=== PATIENT | male | born 1970 | race Caucasian/White ===

== ENCOUNTER 2020-08-08 09:23 | Outpatient (REF) | payer BC, SELFPAY ==
[2020-08-08 12:16] LABS: Alanine Aminotransferase 49 U/L (0-40); Aspartate Amino Transferase 34 U/L (5-37); Cholesterol 263 mg/dL; HDL Cholesterol 61 mg/dL; LDL Cholesterol Calculated 179 mg/dl; Triglycerides 116 mg/dL
== END 2020-08-08 09:24 | disposition home or self-care (01) ==
LOC: HO.HMGCLDS 09:23
PROVIDERS: PCP Internal Medicine; Visit Provider Internal Medicine
DX: E78.00 Pure hypercholesterolemia, unspecified (principal); R74.8 Abnormal levels of other serum enzymes
CPT/HCPCS: 36415; 80061; 82550; 84450; 84460

== ENCOUNTER 2020-09-21 15:02 | Emergency (ER) | payer BC, SELFPAY ==
--- NOTE | ~2020-09-21 | CT_ITS ---
EXAMINATION: CT ABDOMEN AND PELVIS WITHOUT CONTRAST CLINICAL INFORMATION: Left flank pain COMPARISON: Abdominal ultrasound 09/29/2016 TECHNIQUE: Multidetector volumetric imaging was performed from the superior aspect of the liver through the pubic symphysis. Sagittal and coronal reformatted images were obtained on the technologist's workstation. This CT examination was performed using dose optimization techniques as appropriate, variously including the following: *Automated exposure control *Adjustment of mA and/or kV according to patient size (this includes techniques or standardized protocols for targeted exams where dose is matched to indication/reason for exam; i.e. extremities or head) *Use of iterative reconstruction technique DLP: 730 mGy-cm FINDINGS: Visualized lung bases demonstrate mild dependent atelectasis. The liver is normal in size but demonstrates diffusely decreased attenuation. The gallbladder is normal in appearance. The pancreas, spleen and adrenal glands are unremarkable. Mild to moderate left-sided hydroureteronephrosis secondary to a 4 mm calculus within the mid left ureter. There is mild perinephric stranding of the left kidney. 2 cm left renal cyst. No right-sided renal calculi or right-sided hydronephrosis. Tiny hiatal hernia. The stomach is decompressed. Normal caliber loops of small and large bowel. Mild colonic diverticulosis without CT evidence to suggest active diverticulitis. Normal appendix. Nonaneurysmal abdominal aorta which demonstrates only minimal atherosclerotic disease. The bladder is normal in appearance. Prostate gland is unremarkable. No gross free pelvic fluid. No inguinal lymphadenopathy. No acute osseous abnormality. CT/CT abdomen pelvis wo con IMPRESSION: -Mild to moderate left-sided hydronephrosis secondary to a 4 mm calculus within the mid left ureter. -Mildly decreased liver attenuation suggesting hepatic steatosis. -Mild colonic diverticulosis without CT evidence to suggest active diverticulitis.
[2020-09-21 15:09] VITALS: BP 153/92; PULSE 95; RESP 16; TEMP 36.7; O2SAT 99; BMI 29.1
[2020-09-21 18:45] VITALS: BP 133/92; PULSE 74; RESP 17; TEMP 37.7; O2SAT 98
[2020-09-21 19:09] LABS: MANUAL DIFF FLAG NO
[2020-09-21 19:11] LABS: Basophils Absolute Auto 0.1 X10*3/uL (0.0-0.2); Basophils Percent Auto 0.5 % (0-2); Eosinophils Percent Auto 0.1 % (0-4); Hematocrit 48.5 % (42-52); Hemoglobin 16.5 g/dl (14.0-18.0); Imm Gran Abs Auto 0.03 X10*3/uL (0.00-0.03); Imm Gran Pct Auto 0.3 % (0.0-0.4); Lymphocytes Absolute Auto 1.4 X10*3/uL (1.2-4.9); Lymphocytes Percent Auto 12.5 % (20-40); Mean Corpuscular Hemoglobin 29.7 pg (27.0-33.0); Mean Corpuscular Volume 87.2 fL (80-98); Mean Platelet Volume 8.5 fL (9.4-12.4); Monocytes Absolute Auto 1.1 X10*3/uL (0.1-1.2); Monocytes Percent Auto 9.6 % (2-11); Neutrophils Absolute Auto 8.4 X10*3/uL (2.0-8.3); Platelet Count 275 X10*3/uL (160-400); Red Blood Count 5.56 X10*6/uL (4.60-5.80); Red Cell Distribution Width 12.4 % (11.0-16.0)
[2020-09-21] MEDS: 0.9 % Sodium Chloride 1,000 ML 999 ML IVCONT ×2 (19:15→20:56)
[2020-09-21] MEDS: Ketorolac Tromethamine 30 MG/ML VIAL IVPUSH (19:15)
--- NOTE | 2020-09-21 19:20 | ED_ITS ---
HPI - Abdominal Pain General Chief Complaint: Abdominal Pain Stated Complaint: ?KIDNEY STONE Time Seen by Provider: 09/21/20 18:38 Source: patient Mode of arrival: ambulatory Limitations: no limitations History of Present Illness HPI narrative: Patient with no significant past medical history noticed ?lower quadrant pain a month ago seen his PCP who gave him Cipro and Flagyl antibiotic without doing any workup no imaging was done patient felt better after 3 days of taking antibiotics done again for last 4 days patient noticing pain coming back now this time pain is radiating to the left testicle and since yesterday to left flank patient denies any hematuria no urinary complaints no history of kidney stones in the past no history of diverticulitis in the past patient's son has stones MD elicited complaint: abdominal pain Pertinent past history: none Onset (ago): day(s) (4) Pain Consistency: intermittent Location: LLQ Severity: moderate Radiation: L flank Exacerbating factors: nothing Relieving factors: nothing Associated symptoms: nausea Related Data Home Medications Medication Instructions Recorded Confirmed coenzyme Q10 10 mg capsule 10 mg PO ONCE cap 08/12/20 08/31/20 flu vaccine [id number](6mos up) 60 ml IM 08/12/20 08/31/20 mcg (15 mcg x 4)/0.5 mL IM susp Previous Rx's Medication Instructions Recorded metoprolol tartrate 25 mg tablet 12.5 mg PO DAILY #45 tab 07/27/20 ciprofloxacin HCl 500 mg tablet 500 mg PO Q12H #14 tab 08/27/20 metronidazole 500 mg tablet 500 mg PO Q12H #14 tab 08/27/20 pravastatin 40 mg tablet 40 mg PO BEDTIME 90 Days #90 tab 08/27/20 naproxen 500 mg tablet 500 mg PO BID PRN #30 tab 09/09/20 nystatin 100,000 unit/mL oral 500,000 unit PO QID 14 Days #280 ml 09/09/20 suspension oxycodone 5 mg PO Q6H PRN #20 tab 09/21/20 tamsulosin [Flomax] 0.4 mg PO DAILY #10 cap 09/21/20 Allergies Allergy/AdvReac Type Severity Reaction Status Date / Time No Known Allergies Allergy Verified 09/09/20 13:13 Review of Systems Review of Systems Constitutional : No Weight loss, No Fever, No Chills ENT/Mouth : No sore throat, No Rhinorrhea Eyes: No Eye Pain, No Swelling Cardiovascular : No Chest Pain, no palpitations Respiratory : No Cough, No Sputum, no shortness of breath Gastrointestinal : + Nausea, No Vomiting, No Diarrhea, + abdominal Pain, no black stools Genitourinary : No Dysuria, No Urinary Frequency Musculoskeletal : No joint pain, No Myalgias, No Joint Swelling Skin : No Skin Lesions, No rash Neuro : No Weakness, No Numbness, No Dizziness, No Headache Psych : No Anxiety/Panic, No Depression Heme/Lymph: No Bruising, No Lymphadenopathy Endocrine : No Polyuria, No Polydipsia All other systems reviewed and are negative Physical Exam Vital Signs: Vital Signs: Last Vital Signs Temp 99.9 F 09/21/20 18:45 Pulse 74 09/21/20 18:45 Resp 17 09/21/20 18:45 BP 133/92 H 09/21/20 18:45 Pulse Ox 98 09/21/20 18:45 Body Mass Index 29.1 Appearance: Alert. Oriented X3. No acute distress. Eyes: Pupils equal, round and reactive to light. ENT: Pharynx normal. Neck: Normal inspection. Neck supple. CVS: Normal heart rate and rhythm. Pulses normal. Respiratory: No respiratory distress. Breath sounds normal. Abdomen: Soft and deep tenderness left lower quadrant. Bowel sounds are present, no mass palpable, no CVA tenderness Skin: Skin warm and dry. Normal skin color. Normal skin turgor. Extremities: No lower extremity edema. Neuro: Oriented X 3. No motor deficit. No sensory deficit. MDM - Abdominal Pain MDM Narrative Medical decision making narrative: Pain left flank pain workup showed 4 mm stone in left mid ureter with hydronephrosis patient responded to pain medication feels better now will discharge patient home advised to follow with urologist Differential Diagnosis Differential diagnosis: Likely abdominal pain, calculus of kidney and diverticulitis Lab Data Attestation: I reviewed the patient's lab results. Result diagrams: 09/21/20 19:03 09/21/20 19:03 Labs: Lab Results 09/21/20 09/21/20 09/21/20 Range/Units 19:03 19:03 19:03 WBC 11.0 H (4.8-10.8) X10*3/uL RBC 5.56 (4.60-5.80) X10*6/uL Hgb 16.5 (14.0-18.0) g/dl Hct 48.5 (42-52) % MCV 87.2 (80-98) fL MCH 29.7 (27.0-33.0) pg MCHC 34.0 (31.0-36.0) g/dl RDW 12.4 (11.0-16.0) % Plt Count 275 (160-400) X10*3/uL MPV 8.5 L (9.4-12.4) fL Immature Gran % (Auto) 0.3 (0.0-0.4) % Neut % (Auto) 77.0 H (45-73) % Lymph % (Auto) 12.5 L (20-40) % [place] % (Auto) 9.6 (2-11) % Eos % (Auto) 0.1 (0-4) % Baso % (Auto) 0.5 (0-2) % Lymph # (Auto) 1.4 (1.2-4.9) X10*3/uL [place] # (Auto) 1.1 (0.1-1.2) X10*3/uL Eos # (Auto) 0.0 (0.0-0.4) X10*3/uL Baso # (Auto) 0.1 (0.0-0.2) X10*3/uL Abs Immat Gran (auto) 0.03 (0.00-0.03) X10*3/uL Absolute Neuts (auto) 8.4 H (2.0-8.3) X10*3/uL Absolute Nucleated RBC 0.000 (0.0-0.012) X10*3/uL Nucleated RBC % (auto) 0.0 (0.0-0.2) /100WBC PT 12.0 (10.8-13.0) SEC INR 1.0 (0.9-1.1) Sodium 139 (135-145) mmol/L Potassium 4.4 (3.3-5.1) mmol/L Chloride 104 (96-108) mmol/L Carbon Dioxide 22 (22-29) mmol/L Anion Gap 17 (12-20) BUN 21 H (9-16) mg/dL Creatinine 1.50 H (0.5-1.4) mg/dL Estim Creat Clear Calc 72.8 Estimated GFR 50 Random Glucose 81 (60-115) mg/dL Calcium 9.3 (8.4-10.2) mg/dL Urine Color Urine Appearance Urine pH (5.0-8.0) Ur Specific [place] (1.005-1.025) Urine Protein (NEG-TRACE) MG/DL Urine Glucose (UA) (NEG) MG/DL Urine Ketones (NEG) MG/DL Urine Blood (NEG) Urine Nitrite (NEG) Ur Leukocyte Esterase (NEG) Urine RBC (0) /HPF Urine WBC (0-4) /HPF Ur Squamous Epith Cells /LPF Urine Bacteria /LPF 09/21/20 Range/Units 20:59 WBC (4.8-10.8) X10*3/uL RBC (4.60-5.80) X10*6/uL Hgb (14.0-18.0) g/dl Hct (42-52) % MCV (80-98) fL MCH (27.0-33.0) pg MCHC (31.0-36.0) g/dl RDW (11.0-16.0) % Plt Count (160-400) X10*3/uL MPV (9.4-12.4) fL Immature Gran % (Auto) (0.0-0.4) % Neut % (Auto) (45-73) % Lymph % (Auto) (20-40) % [place] % (Auto) (2-11) % Eos % (Auto) (0-4) % Baso % (Auto) (0-2) % Lymph # (Auto) (1.2-4.9) X10*3/uL [place] # (Auto) (0.1-1.2) X10*3/uL Eos # (Auto) (0.0-0.4) X10*3/uL Baso # (Auto) (0.0-0.2) X10*3/uL Abs Immat Gran (auto) (0.00-0.03) X10*3/uL Absolute Neuts (auto) (2.0-8.3) X10*3/uL Absolute Nucleated RBC (0.0-0.012) X10*3/uL Nucleated RBC % (auto) (0.0-0.2) /100WBC PT (10.8-13.0) SEC INR (0.9-1.1) Sodium (135-145) mmol/L Potassium (3.3-5.1) mmol/L Chloride (96-108) mmol/L Carbon Dioxide (22-29) mmol/L Anion Gap (12-20) BUN (9-16) mg/dL Creatinine (0.5-1.4) mg/dL Estim Creat Clear Calc Estimated GFR Random Glucose (60-115) mg/dL Calcium (8.4-10.2) mg/dL Urine Color YELLOW Urine Appearance CLEAR Urine pH 5.5 (5.0-8.0) Ur Specific [place] >= 1.030 H (1.005-1.025) Urine Protein TRACE (NEG-TRACE) MG/DL Urine Glucose (UA) NEG (NEG) MG/DL Urine Ketones 5 (NEG) MG/DL Urine Blood 3+ H (NEG) Urine Nitrite NEG (NEG) Ur Leukocyte Esterase NEG (NEG) Urine RBC 5-9 H (0) /HPF Urine WBC 0-2 (0-4) /HPF Ur Squamous Epith Cells TRACE /LPF Urine Bacteria TRACE /LPF Discharge Plan Discharge Clinical Impression: Calculus of left ureter Patient Disposition: Home, Self-Care Instructions: Kidney Stones (ED) Additional Instructions: Drink plenty of fluids Take pain medication as advised. Take Flomax daily until you pass the stone Follow-up with urologist Prescriptions: New oxycodone 5 mg tablet 5 mg PO Q6H PRN (Reason: Pain, Moderate) Qty: 20 RF: 0 tamsulosin [Flomax] 0.4 mg capsule 0.4 mg PO DAILY Qty: 10 RF: 0 No Action metoprolol tartrate 25 mg tablet 12.5 mg PO DAILY Qty: 45 RF: 2 nystatin 100,000 unit/mL suspension 500,000 unit PO QID 14 Days Qty: 280 RF: 0 naproxen 500 mg tablet 500 mg PO BID PRN (Reason: pain) Qty: 30 RF: 0 coenzyme Q10 [Co Q-10] 10 mg capsule 10 mg PO ONCE RF: 0 Fluzone Quad 60 mcg (15 mcg x 4)/0.5 mL suspension IM RF: 0 pravastatin 40 mg tablet 40 mg PO BEDTIME 90 Days Qty: 90 RF: 2 ciprofloxacin HCl 500 mg tablet 500 mg PO Q12H Qty: 14 RF: 0 metronidazole 500 mg tablet 500 mg PO Q12H Qty: 14 RF: 0 Referrals: John Lowery MD [Physician] - 2 days Interventions: ED Discharge Assessment Last Done: 09/21/20 23:27 Discharge Date/Time: 09/21/20 23:29 [facility] Past Medical History Medical History Dyslipidemia Elevated CK Factor 5 Leiden mutation, heterozygous Generalized anxiety disorder Left lower quadrant abdominal pain Lyme disease Right shoulder pain Shoulder pain, right Surgical History History of carpal tunnel release History of total bilateral knee replacement (TKR) Family History Family History Father Cancer of prostate Bone cancer Mother Breast cancer Liver cancer Lung cancer Sister No problems noted. Sister No problems noted. Son No problems noted. Daughter No problems noted. Daughter No problems noted. Social History Social History Alcohol intake: never Smoking Status: Never smoker Use of substances other than those prescribed or required for medical reasons: No Advance Directives: No Advance Directives Information Provided: Yes
[2020-09-21 19:31] LABS: Anion Gap 17 (12-20); Blood Urea Nitrogen 21 mg/dL (9-16); Calcium 9.3 mg/dL (8.4-10.2); Carbon Dioxide 22 mmol/L (22-29); Chloride 104 mmol/L (96-108); Creatinine Clr Calc Pharmacy 72.8; Estimated Glomerular Filt Rate 50; Glucose Random 81 mg/dL (60-115); Potassium 4.4 mmol/L (3.3-5.1); Sodium 139 mmol/L (135-145)
[2020-09-21] MEDS: Tamsulosin HCL 0.4 MG CAPSULE 0.8 MG PO (20:56)
[2020-09-21 21:15] LABS: Glucose Urine UA NEG (NEG); Leukocyte Esterase Urine NEG (NEG); Nitrite Urine NEG (NEG); PH 5.5 (5.0-8.0); Specific Gravity - Urine >= 1.030 (1.005-1.025); Urine Blood 3+ (NEG); Urine Ketones 5 MG/DL (NEG); Urine Protein TRACE MG/DL (NEG-TRACE)
[2020-09-21 21:16] LABS: Appearance Urine CLEAR; Color Urine YELLOW
[2020-09-21 21:23] LABS: WBC Urine 0-2 /HPF (0-4)
[2020-09-21 21:24] LABS: Bacteria Urine TRACE /LPF; Squamous Epithelial Cell Urine TRACE /LPF
[2020-09-21] MEDS: ondansetron HCL 4 MG/2 ML VIAL IVPUSH (21:39)
[2020-09-21] MEDS: Morphine Sulfate 4 MG/ML CARTRIDGE IVPUSH (21:39)
== END 2020-09-21 23:29 | disposition home or self-care (01) ==
PROVIDERS: Emergency Provider Internal Medicine; PCP Internal Medicine
DX: N20.1 Calculus of ureter (principal); R10.32 Left lower quadrant pain; Z79.899 Other long term (current) drug therapy
CPT/HCPCS: 36415; 74176; 80048; 81001; 85025; 85610; 96361; 96365; 96375; 99284; J1100; J1885; J2270; J2405

== ENCOUNTER 2020-10-06 15:00 | Outpatient (RCR) | payer BC, SELFPAY ==
--- NOTE | 2020-09-11 17:12 | MHC.PT.EP ---
[facility] [place] [facility] [place] [facility] [place] [facility] [address] [place] [address] Dr Dany Hernandez [address] [phone] F: [phone] F: [phone] F: [phone] F: [phone] Physical Therapy Plan of Care Date of Evaluation: 09/11/20 Date of Surgery: Diagnosis: RIGHT SHOULDER PAIN Assessment: 49 YO MALE REF TO PT FOR RIGHT SHOULDER INJURY SUSTAINED IN LATE 06/2020 AFTER EXCESSIVE REACHING WITH RIGHT UE AND THEN RECENT EXACERBATION OF RIGHT LOWER THORACIC, RIB/ SOFT TISSUE PAIN- OF SIGNIFICANCE, Pt IS A HIGH SCHOOL SENIOR BIOINFORMATICS SPECIALIST AND HIS CURRENT INJURY PREVENTS HIM FROM THROWING A BASEBALL. OBJECTIVE FINDINGS: DECR POSTURE AWARENESS ( Lt SH ELEV, TRUNK SB Rt AND RIB CAGE ROTAT Rt)- TIGHT PECT MM, PAIN AT END RANGE Rt SH ER/ABD/EXT/HORIZ ADD/ FLEX W SCAP DYSKINESIS W FE, (+) STRENGTH DEFICITS Rt SH DUE TO PAIN, DECR TRUNK LAT FLEX LEFT W TIGHTNESS Rt QL/ LAT AND DECR CORE STAB. FUNCTIONALLY, Pt IS LIMITED W Rt SH REACHING OUT AND BACK FOR SE[place]BELT, IR POSTERIORLY ADLs, AND REACHING INTO HORIZ ADD- (+) MILD IMPINGEMENT SXS, NO CURRENT Rt GH OR AC INSTABILITY Frequency and Duration: The patient will be seen 2x WK x 5 WKS Short Term Goals: Pt DEMON INDEP W SELF-CORRECT POSTURE IN MULTIPLE POSES/ ADLs/EXER IN 2 WKS Pt'S RIGHT SH PAIN DECR TO 2-3/10 IN 2 WKS AND TWINGE EPISODES REDUCED BY 75% Pt DEMON WFL/ SYMMETRICAL SH AND TRUNK AROM IN 3 WKS [facility] Goals: Pt INDEP W HEP FOR FLEXIB AND STRENGTHENING AND SELF-SX MGMT TECHN IN 5 WKS Pt RESUME REG ADLs AND THROW A BASEBALL W/O SXS , EVIDENT W IMPROVED SPADI SCORE BY 10 POINTS IN 5 WKS Treatment Plan: Modalities to reduce pain, spasms and effusion. Manual therapy to restore motion and function. Therapeutic exercise to improve strength and flexibility. Neuromuscular re-education for posture and balance. Therapeutic activities to return to functional activities of daily living. Electronically signed by: Olivia Arrieta, PT Please sign and return to therapist. Thank you for your referral.
--- NOTE | 2020-10-27 11:57 | MHC.PT.DC ---
[facility] [place] Office [place] Office [place] Office [address] Dany Hernandez [address] [facility] [phone] F: [phone] F: [phone] F: [phone] F: [phone] Physical Therapy Discharge Report Diagnosis: RIGHT SHOULDER PAIN Date of Surgery: Date of Evaluation: 09/11/20 Date of Discharge: 10/27/20 Treatments to Date: 5 Cancellations to Date: 2 No Shows to Date: 0 Discharge Status: Achieved Goals Improved Function Independent with HEP Patient Elected to Stop Discharge Summary: Pt RESPONDED VERY WELL TO PT INTERVENTION FOR RIGHT SHOULDER INJURY- HE NOTED RESOLVED PAIN, IMPROVED RIGHT SHOULDER COMPLEX STRENGTH AND STABILITY, AND HAS BEEN ABLE TO RESUME REG ADLs- BASEBALL SEASON IS APPROACHING. Pt HAD ONSET OF A DIFFERENT MEDICAL DIAGNOSIS WARRANTING HIS CURRENT ATTENTION, THEREFORE, HE DISCHARGED HIMSELF, COMPLIANT W HEP. Electronically signed by: Olivia Arrieta PT Please sign and return to therapist. Thank you for your referral.
== END 2020-10-27 11:58 | disposition other institution (70) ==
LOC: HO.PTCHIC 15:00
PROVIDERS: PCP Internal Medicine; Visit Provider Internal Medicine
DX: M25.511 Pain in right shoulder (principal)
CPT/HCPCS: 97110; 97112; 97140; 97162

== ENCOUNTER 2020-11-17 07:20 | Outpatient (REF) | payer BC, SELFPAY ==
[2020-11-17 12:08] LABS: Alanine Aminotransferase 39 U/L (0-40); Aspartate Amino Transferase 36 U/L (5-37); Cholesterol 212 mg/dL; HDL Cholesterol 56 mg/dL; LDL Cholesterol Calculated 129 mg/dl; Triglycerides 138 mg/dL
== END 2020-11-17 07:21 | disposition home or self-care (01) ==
LOC: HO.HMGCLDS 07:20
PROVIDERS: PCP Internal Medicine; Visit Provider Internal Medicine
DX: E78.5 Hyperlipidemia, unspecified (principal)
CPT/HCPCS: 36415; 80061; 82550; 84450; 84460

== ENCOUNTER 2021-02-23 08:10 | Outpatient (REF) | payer BC, SELFPAY ==
[2021-02-23 11:46] LABS: Alanine Aminotransferase 32 U/L (0-40); Anion Gap 15 (12-20); Aspartate Amino Transferase 35 U/L (5-37); Blood Urea Nitrogen 22 mg/dL (9-16); Calcium 9.9 mg/dL (8.4-10.2); Carbon Dioxide 26 mmol/L (22-29); Chloride 104 mmol/L (96-108); Cholesterol 231 mg/dL; Estimated Glomerular Filt Rate > 60; Glucose Fasting 84 mg/dL (60-99); HDL Cholesterol 59 mg/dL; LDL Cholesterol Calculated 149 mg/dl; Potassium 4.7 mmol/L (3.3-5.1); Sodium 140 mmol/L (135-145); Triglycerides 118 mg/dL
== END 2021-02-23 08:11 | disposition home or self-care (01) ==
LOC: HO.HMGCLDS 08:10
PROVIDERS: PCP Internal Medicine; Visit Provider Internal Medicine
DX: R74.8 Abnormal levels of other serum enzymes (principal); E78.5 Hyperlipidemia, unspecified; I10 Essential (primary) hypertension
CPT/HCPCS: 36415; 80048; 80061; 82550; 84450; 84460

== ENCOUNTER 2021-11-17 07:19 | Outpatient (REF) | payer BC, SELFPAY ==
[2021-11-17 12:15] LABS: Alanine Aminotransferase 24 U/L (0-40); Aspartate Amino Transferase 30 U/L (5-37); Cholesterol 251 mg/dL; HDL Cholesterol 65 mg/dL; LDL Cholesterol Calculated 176 mg/dl; Triglycerides 53 mg/dL
== END 2021-11-17 07:20 | disposition home or self-care (01) ==
LOC: HO.HMGCLDS 07:19
PROVIDERS: Visit Provider Internal Medicine
DX: E78.5 Hyperlipidemia, unspecified (principal); R74.8 Abnormal levels of other serum enzymes
CPT/HCPCS: 36415; 80061; 82550; 84450; 84460

== ENCOUNTER 2022-05-13 09:47 | Day surgery (SDC) | payer BC, SELFPAY ==
--- NOTE | 2022-05-12 08:43 | HO.ANESPROP2 ---
Documented by User: Renetta Lua NP 05/12/22 08:44 HPI - Anesthesia Eval Consult details Narrative: 51yo M for Colonoscopy Factor 5, no anticoag PMFSH Active Problems Active Problems: All Active Problems (Updated 01/22/22 @ 17:11 by Cathy Razo MD) Muscle twitching (Acute) Encounter for screening colonoscopy (Acute) Nephrolithiasis (Acute) Elevated CK (Acute) Factor 5 Leiden mutation, heterozygous (Acute) Dyslipidemia (Acute) Past Medical History Medical History Dyslipidemia Elevated CK Factor 5 Leiden mutation, heterozygous Generalized anxiety disorder History of nephrolithiasis History of vitamin D deficiency Impacted cerumen of both ears Left lower quadrant abdominal pain Lyme disease Right shoulder pain Shoulder pain, right Family History Family History Father Diabetes mellitus Mother Breast cancer Paroxysmal atrial fibrillation HTN (hypertension) Sister No problems noted. Sister No problems noted. Son Kidney stones Daughter No problems noted. Daughter No problems noted. 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 Current occupational exposures/hazards: No Cognitive needs: No Hearing needs: No Vision needs: No Meds Allergies Allergy/AdvReac Type Severity Reaction Status Date / Time No Known Allergies Allergy Verified 05/07/22 14:40 Home Medications Medication Instructions Recorded Confirmed Last Taken Type No Known Home Meds 01/22/22 01/22/22 Unknown History Exam Exam Date and Time: May 12, 2022 0843 Assessment and Plan Assessment Anesthesia Assessment: Chart Reviewed Documented by User: Gamaliel Ruiz MD 05/13/22 17:58 [facility] Past Medical History Medical History Dyslipidemia Elevated CK Factor 5 Leiden mutation, heterozygous Generalized anxiety disorder History of nephrolithiasis History of vitamin D deficiency Impacted cerumen of both ears Left lower quadrant abdominal pain Lyme disease Right shoulder pain Shoulder pain, right Family History Family History Father Diabetes mellitus Mother Breast cancer Paroxysmal atrial fibrillation HTN (hypertension) Sister No problems noted. Sister No problems noted. Son Kidney stones Daughter No problems noted. Daughter No problems noted. Brother Paroxysmal atrial fibrillation Family history of problems with anesthesia: No Surgical History History of Problems with Anesthesia: No Social History Social History Housing: House Alcohol intake: never Patient Tobacco Use Status: Never used Tobacco e-Cigarette/Vaping Use: Never Used Second Hand Smoke Exposure: No service: No Current occupational status: employed Current occupation: business support professional at a [employer] Current occupational exposures/hazards: No Cognitive needs: No Hearing needs: No Vision needs: No Meds Allergies Allergy/AdvReac Type Severity Reaction Status Date / Time No Known Allergies Allergy Verified 05/07/22 14:40 Home Medications Medication Instructions Recorded Confirmed Last Taken Type No Known Home Meds 01/22/22 01/22/22 Unknown History Exam Airway Mallampati Class: III TM Dist: >3cm Neck ROM: Full Loose/Missing/Broken Teeth: Yes (Fillings , crowns ) Heart: S1,S2 Lungs: b/l breath sounds Assessment and Plan Assessment Anesthesia Assessment: Anesthesia Plan Discussed Final Anesthetic Review Family History of Problems with Anesthesia: No History of Problems with Anesthesia: No NPO: Yes ASA Class: II Final Preanesthetic Review: Meds/Allgs Chart Reviewed, Consent Obtained/Reviewed and Anes Risks/Benef Reviewed Patient Risk: Intermediate Procedure Risk: Intermediate Anesthetic Plan Anesthetic Plan: MAC: Disposition: Standard PACU
[2022-05-13 10:14] VITALS: BP 130/87; PULSE 72; RESP 18; TEMP 36.8; O2SAT 99; BMI 25.0
[2022-05-13] MEDS: Lactated Ringers 1,000 ML 100 ML IVCONT (10:39)
--- NOTE | 2022-05-13 11:07 | P.HPSUR_ITS ---
Pre-Procedural Eval Section A Date of Service: 05/13/22 Section B Chief Complaint: screening Relevant Family History (Specify if Yes): No Relevant Social History: None Present Medications: see Short Stay Collaborative assessment Medical History: Significant History (Dyslipidemia Elevated CK Factor 5 Leiden mutation, heterozygous Generalized anxiety disorder History of nephrolithiasis History of vitamin D deficiency Impacted cerumen of both ears Left lower quadrant abdominal pain Lyme disease Right shoulder pain Shoulder pain, right) History of Previous Operations: Relevant previous surgery/procedure and date(s) (knee replacement ) Allergies: Allergies Allergy/AdvReac Type Severity Reaction Status Date / Time No Known Allergies Allergy Verified 05/07/22 14:40 Review of Systems Sugical H&P ROS: Negative: Constitution, Cardiovascular, Respiratory, Ne urological, Psychiatric, Hem-Onc, Allergic/Immunologic, Gastrointestinal, Genitourinary, Musculoskeletal, Integumentary, Endocrine and Eyes/Ears/Nose/Throat Exam Surgical H&P Exam: Normal: HEENT, Normal: Heart, Normal: Lungs, Normal: Extremities, Normal: Abdomen, Normal: Skin and Normal: Neurological Plan Diagnosis/Plan: Unchanged I have reviewed the history and physical and performed a pertinent physical examination on my patient. No changes have occurred unless specified.
--- NOTE | 2022-05-13 11:08 | W.PM.OPN ---
Operative Note Operative Note Date of Service: 05/13/22 Narrative: Operative Information Procedure Description: Colonoscopy Indication: screening Anesthesia: MAC COLONOSCOPY Instrument: Olympus variable stiffness pediatric scope 190L Colonoscopy Monitoring: Vital signs and clinical assessment, continuous EKG monitoring, Pulse oximetry, Carbon Dioxide monitoring and blood pressure monitoring were done throughout the procedure. Colon withdrawal time was 12 minutes. Procedure: The patient was placed in the left lateral decubitis position and pre-procedure medications were administered. After a digital rectal examination of the ano-rectum, the video colonoscope was inserted into the rectum and advanced through the colon to the cecum/TI. The colonoscope was slowly withdrawn in a retrograde panoramic fashion and the colon mucosa was carefully examined including a retroflexed view of the rectum. Findings and interventions are described below. Procedure Difficulty: easy Findings: Terminal Ileum-normal Cecum: 5-7 mm sessile polyp removed with cold forceps, x1 clip applied for hemostasis Ascending Colon: normal Transverse Colon -normal Descending Colon:normal Sigmoid Colon: moderate severe diverticulosis Rectum: Retroflexion with medium sized internal hemorrhoids, grade I Anorectum - normal Colon preparation: [place] Bowel Preparation Scale Right colon; 2 Transverse colon: 3 Left colon; 2 (0 = Unprepared colon segment with mucosa not seen due to solid stool that cannot be cleared. 1 = Portion of mucosa of the colon segment seen, but other areas of the colon segment not well seen due to staining, residual stool and/or opaque liquid. 2 = Minor amount of residual staining, small fragments of stool and/or opaque liquid, but mucosa of colon segment seen well. 3 = Entire mucosa of colon segment seen well with no residual staining, small fragments of stool or opaque liquid) Impression and Post Procedure Diagnosis: polyp internal hemorrhoids diverticular disease Plan: High fiber diet leaflet Avoid straining at stool, epsom salts and sitz bath, anusol supps or cream Repeat Colonoscopy in 5 years if adenomatous polyp, 10 yrs if benign or earlier if clinically indicated Above findings were reviewed with the patient and relevant handouts were provided if indicated.
[2022-05-13 11:50] VITALS: BP 93/60; PULSE 64; RESP 13; TEMP 36.6; O2SAT 100
[2022-05-13 12:05] VITALS: BP 112/79; PULSE 66; RESP 16; O2SAT 100
[2022-05-13 12:20] VITALS: BP 115/86; PULSE 61; RESP 18; TEMP 36.8; O2SAT 100
== END 2022-05-13 12:44 | disposition home or self-care (01) ==
PROVIDERS: PCP Internal Medicine; Visit Provider Internal Medicine Gastroenterology
PROC: 0DJD8ZZ Inspection of Lower Intestinal Tract, Via Natural or Artificial Opening Endoscopic (ICD-10-PCS; CPT 45378; principal; 2022-05-13 14:30)
DX: Z12.11 Encounter for screening for malignant neoplasm of colon (principal); K63.5 Polyp of colon; K57.30 Diverticulosis of large intestine without perforation or abscess without bleeding; K64.0 First degree hemorrhoids; E78.5 Hyperlipidemia, unspecified; R74.8 Abnormal levels of other serum enzymes; D68.51 Activated protein C resistance; F41.1 Generalized anxiety disorder
CPT/HCPCS: 45380; 88305

== ENCOUNTER 2022-05-17 08:46 | Outpatient (REF) | payer BC, SELFPAY ==
[2022-05-17 12:09] LABS: Cholesterol 229 mg/dL; HDL Cholesterol 61 mg/dL; LDL Cholesterol Calculated 149 mg/dl; Triglycerides 97 mg/dL
== END 2022-05-17 08:47 | disposition home or self-care (01) ==
LOC: HO.HMGCLDS 08:46
PROVIDERS: PCP Internal Medicine; Visit Provider Internal Medicine
DX: E78.5 Hyperlipidemia, unspecified (principal); R74.8 Abnormal levels of other serum enzymes; Z86.39 Personal history of other endocrine, nutritional and metabolic disease
CPT/HCPCS: 36415; 80061; 82306; 82550

== ENCOUNTER 2022-08-12 09:44 | Outpatient (AMB) | payer BC, SELFPAY ==
--- NOTE | 2022-08-12 09:47 | A.OFFPC_ITS ---
Vital Signs 08/12/22 09:49 Height 6 ft Weight 192 lb 6 oz BMI 26.1 BP 120/90 H Blood Pressure Location Rt brachial Position Standing Pulse 90 Pulse Source Pulse Oximeter Pulse Oximetry (%) 98 Oxygen Delivery Method Room Air Intake Visit Reasons: pain in middle of left bicep Allergies No Known Allergies Allergy (Verified 08/12/22 10:47) Medication List - Last Reconciled 08/12/22 by Cathy Razo MD No Known Home Meds Tobacco use date assessed: 08/12/22 HPI pain in middle of left bicep HPI Details 52-year-old male, here today complaining of pain on upper arm on the left. No history of any trauma, or strenuous exertion PFSH Medical History Annual visit for general adult medical examination with abnormal findings Dyslipidemia Elevated CK Factor 5 Leiden mutation, heterozygous Generalized anxiety disorder History of nephrolithiasis History of vitamin D deficiency Impacted cerumen of both ears Left lower quadrant abdominal pain Lyme disease Right shoulder pain Shoulder pain, right Vitamin D deficiency Surgical History Hx of colonoscopy Family History Father Diabetes mellitus Mother Breast cancer Paroxysmal atrial fibrillation HTN (hypertension) Sister No problems noted. Sister No problems noted. Son Kidney stones Daughter No problems noted. Daughter No problems noted. 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 Current occupational exposures/hazards: No Cognitive needs: No Hearing needs: No Vision needs: Yes Questionnaire Thrive Questionnaire Date Thrive assessed: 11/19/21 I am a: Patient What is your living situation today?: I have a steady place to live Within the past 12 months, did the food you bought not last and you didn't have the money to get more?: Never true Within the past 12 months, did you worry whether your food would run out before you got money to buy more?: Never true Do you have trouble paying for medicines?: No Do you have trouble getting transportation to medical appointments?: Yes Do you have trouble paying your heating and electricity bill?: No Do you have trouble taking care of your child, family member or friend?: No Do you have trouble with day-to-day activities such as bathing, preparing meals, shopping, managing finances, etc.?: No Are you currently unemployed and looking for a job?: No Are you interested in more education?: No AUDIT C Alcohol Use Questionnaire (AUDIT-C) 1. How often do you have a drink containing alcohol?: 2-4 times a month 2. How many drinks containing alcohol do you have on a typical day when you are drinking?: 1 or 2 3. How often do you have six or more drinks on one occasion?: Never Total Score: 2 DEREJE-7 AMB Questionnaire DEREJE-7 Date DEREJE - 7 assessed: 11/19/21 Feeling nervous, anxious, or on edge: 1 = Several days Not being able to stop or control worryin = Several days Worrying too much about different things: 1 = Several days Trouble relaxin = Several days Being so restless that it is hard to sit still: 0 = Not at all Becoming easily annoyed or irritable: 1 = Several days Feeling afraid as if something awful might happen: 1 = Several days Total DEREJE-7 score (0-4 normal; 5-9 mild; 10-14 moderate; 15-21 severe): 6 Source: Developed by Drs. Foster Coley, Leeanne Flores, Mika Addison and colleagues, with an educational jessee from [employer]. Review of Systems Const All systems reviewed & are unremarkable except as noted in HPI and below Physical exam (Primary Care) Vital Signs: Last Vital Signs Pulse 90 08/12/22 09:49 BP 120/90 H 08/12/22 09:49 Pulse Ox 98 08/12/22 09:49 Oxygen Delivery Method Room Air 08/12/22 09:49 BMI result Body Mass Index 26.1 Tobacco/Smoking Status: Tobacco use Status Tobacco use date assessed 08/12/22 08/12/22 09:55 Patient Tobacco Use Status Never used Tobacco 08/12/22 09:55 e-Cigarette/Vaping Use Never Used 08/12/22 09:55 Thrive Assessment: Date of Thrive Assessment Date Thrive assessed 11/19/21 08/12/22 09:55 Const Other: Alert oriented x3, no acute distress noted, ambulatory normal gait Orientation/consciousness: patient oriented x3 HENMI Head: Yes normocephalic and Yes atraumatic Mouth: Normal oral and palatal mucosa present, oropharynx normal and moist mucous membranes Neck Other: Supple with no lymphadenopathy Resp Auscultation: clear to auscultation bilaterally Cardio Other: S1-S2 present regular rate and rhythm General: Yes no CVA tenderness Back/Spine/Pelvis Back: no CVA tenderness and No back tenderness Skin General skin exam: no rashes or lesions noted Neuro General: patient oriented x3, gait normal, tone normal, moves all extremities, Normal light touch and pain sensation and no focal motor deficits Extrem Right upper extremity: normal to inspection, full ROM, no joint enlargement and shoulder/upper arm Details: normal to inspection; no tenderness, no swelling and no deformity; no edema Assessment and Plan Assessment & Plan (1) Paresthesia and pain of left extremity: Code(s): M79.609 - Pain in unspecified limb; R20.2 - Paresthesia of skin Plan: Likely isolated nerve impingement, advised to take Advil 1 tablet once a day with food for in 1 week, return to the clinic if no improvement symptoms noted Coding Level of Care Code Est Pt Level 3 (34917) Diagnoses Paresthesia and pain of left extremity M79.609; R20.2
[2022-08-12 09:49] VITALS: BP 120/90; PULSE 90; O2SAT 98; BMI 26.1
== END 2022-08-12 12:24 | disposition home or self-care (01) ==
LOC: HO.HMGC 09:44
PROVIDERS: PCP Internal Medicine; Visit Provider Internal Medicine
DX: M79.609 Pain in unspecified limb (principal); R20.2 Paresthesia of skin
CPT/HCPCS: 99213

== ENCOUNTER 2023-10-28 08:19 | Outpatient (AMB) | payer BC, SELFPAY ==
--- NOTE | 2023-10-28 08:26 | MHC.PC.OV ---
Vital Signs 10/28/23 08:40 Height 6 ft Weight 212 lb BMI 28.7 BP 110/82 Blood Pressure Location Lt brachial Position Sitting Pulse 81 Pulse Source Pulse Oximeter Pulse Oximetry (%) 97 Oxygen Delivery Method Room Air Intake Visit Reasons: Annual PE Intake Note: Pt is here today for his PE: Last colonoscopy 05/13/22 Allergies No Known Allergies Allergy (Verified 10/28/23 09:15) Medication List - Last Reconciled 10/28/23 by Cathy Razo MD No Known Home Meds Tobacco use date assessed: 10/28/23 Dental Screening Dental Screen Date: 10/28/23 Did you have a dental visit in the last 12 months?: Yes Did you have a dental problem in the last 6 months where you did not have access to dental care?: No Was dental information given to patient?: Patient has dentist HPI Annual PE HPI Details 52 year-old male with history of nephrolithiasis, dyslipidemia, factor 5 Leiden mutation, and chronically elevated at muscle enzymes, here today for his physical exam. He is up-to-date with his screening colonoscopy done 05/13/2022 which showed Diverticulosis, hyperplastic colon polyp, internal hemorrhoids. He is not taking any cholesterol medication, feels better off it, but states that he has not been following a healthy diet, nor has he been getting any exercise lately. He is currently seeing his urologist once a year, has not had any recent attacks of kidney stone. [facility] Medical History (Updated 10/30/23 @ 17:19 by Cathy Razo MD) Annual visit for general adult medical examination with abnormal findings Vitamin D deficiency History of vitamin D deficiency History of nephrolithiasis Left lower quadrant abdominal pain Elevated CK Lyme disease Generalized anxiety disorder Factor 5 Leiden mutation, heterozygous Dyslipidemia Surgical History Hx of colonoscopy Family History Father Diabetes mellitus Mother Breast cancer Paroxysmal atrial fibrillation HTN (hypertension) Sister No problems noted. Sister No problems noted. Son Kidney stones Daughter No problems noted. Daughter No problems noted. 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 1. Little interest or pleasure in doing things: not at all 2. Feeling down, depressed, or hopeless: not at all 3. Trouble falling or staying asleep, or sleeping too much: not at all 4. Feeling tired or having little energy: not at all 5. Poor appetite or overeating: not at all 6. Feeling bad about yourself - or that you are a failure or have let yourself or your family down: not at all 7. Trouble concentrating on things, such as reading the newspaper or watching television: not at all 8. Moving or speaking so slowly that other people could have noticed. Or the opposite - being so fidgety or restless that you have been moving around a lot more than usual: not at all 9. Thoughts that you would be better off or of hurting yourself in some way: not at all Total score: 0 Depression Screening Interpretation: Negative Depression Screening Done: Yes 12798 - PHQ-9 Billing: Yes Source: Developed by Drs. Foster Coley, Leeanne Flores, Mika Addison and colleagues, with an educational jessee from [employer]. Thrive Questionnaire Date Thrive assessed: 10/28/23 I am a: Patient What is your living situation today?: I have a steady place to live Within the past 12 months, did the food you bought not last and you didn't have the money to get more?: Never true Within the past 12 months, did you worry whether your food would run out before you got money to buy more?: Never true Do you have trouble paying for medicines?: No Do you have trouble getting transportation to medical appointments?: No Do you have trouble paying your heating and electricity bill?: No Do you have trouble taking care of your child, family member or friend?: No Do you have trouble with day-to-day activities such as bathing, preparing meals, shopping, managing finances, etc.?: No Are you currently unemployed and looking for a job?: No Are you interested in more education?: No THRIVE Score: 0 AUDIT C Alcohol Use Questionnaire (AUDIT-C) 1. How often do you have a drink containing alcohol?: 2-4 times a month 2. How many drinks containing alcohol do you have on a typical day when you are drinking?: 1 or 2 3. How often do you have six or more drinks on one occasion?: Never Total Score: 2 DEREJE-7 AMB Questionnaire DEREJE-7 Date DEREJE - 7 assessed: 10/28/23 Feeling nervous, anxious, or on edge: 1 = Several days Not being able to stop or control worryin = Not at all Worrying too much about different things: 1 = Several days Trouble relaxin = Not at all Being so restless that it is hard to sit still: 0 = Not at all Becoming easily annoyed or irritable: 0 = Not at all Feeling afraid as if something awful might happen: 1 = Several days Total DEREEJ-7 score (0-4 normal; 5-9 mild; 10-14 moderate; 15-21 severe): 3 Source: Developed by Drs. Foster Coley, Leeanne Flores, Mika Addison and colleagues, with an educational jessee from [employer]. DEREJE-7 Assessment Billing DEREJE-7 Assessment Tool: DEREJE-7 Assessment 58885 Review of Systems Const Reports no additional complaints Eyes Denies change in vision ENT Denies disequilibrium Card Denies chest pain and Denies dyspnea Resp Denies dyspnea GI Denies abdominal pain, Denies change in stool character, Denies constipation, Denies heartburn and Denies nausea Denies hematuria, Denies oliguria, Denies difficulty urinating and Denies dysuria Musc Denies abnormal gait, Denies back pain, Denies arthralgias, Denies joint swelling, Denies limited range of motion, Denies muscle cramps, Denies muscle weakness, Denies numbness, Denies stiffness and Denies tingling Skin/Breast Denies lesions, Denies rash and Denies sores Neuro Denies abnormal gait, Denies burning sensations, Denies lack of coordination, Denies numbness, Denies radicular pain, Denies restless legs, Denies tingling and Denies disequilibrium Psych Reports no additional complaints Endo Reports no additional complaints Lewis/Lymph Reports no additional complaints Aller/Immun Reports no additional complaints Physical exam (Primary Care) Vital Signs: Last Vital Signs Pulse 81 10/28/23 08:40 BP 110/82 10/28/23 08:40 Pulse Ox 97 10/28/23 08:40 Oxygen Delivery Method Room Air 10/28/23 08:40 BMI result Body Mass Index 28.7 Tobacco/Smoking Status: Tobacco use Status Tobacco use date assessed 10/28/23 10/28/23 08:28 Patient Tobacco Use Status Never used Tobacco 10/28/23 08:26 e-Cigarette/Vaping Use Never Used 10/28/23 08:26 PHQ-9: PHQ-9 Score PHQ-9: Total score 0 10/28/23 09:28 Depression Screening Interpretation: Negative Thrive Assessment: Date of Thrive Assessment Date Thrive assessed 11/19/21 10/28/23 08:26 Const Other: Alert oriented x3, no acute distress noted, ambulatory normal gait Orientation/consciousness: patient oriented x3 HENOH Head: Yes normocephalic and Yes atraumatic Mouth: Normal oral and palatal mucosa present, oropharynx normal and moist mucous membranes Eyes General: appearance normal, both eyes and all related structures Neck Other: Supple with no lymphadenopathy Resp Auscultation: clear to auscultation bilaterally Cardio Other: S1-S2 present regular rate and rhythm GI Palpation (GI): Soft to palpation, nontender, no guarding and no masses Auscultation: normal bowel sounds General: Yes no CVA tenderness Back/Spine/Pelvis Back: no CVA tenderness and No back tenderness Skin General skin exam: no rashes or lesions noted Neuro General: patient oriented x3, gait normal, tone normal, moves all extremities, Normal light touch and pain sensation and no focal motor deficits Extrem Right upper extremity: normal to inspection, full ROM and no joint enlargement; no edema Psych Appearance: grossly normal and well kempt Mental Status: mental status grossly normal Affect: normal affect Assessment and Plan Assessment & Plan (1) Annual visit for general adult medical examination with abnormal findings: Code(s): Z00.01 - Encounter for general adult medical examination with abnormal findings Plan: Will check appropriate labs. Continue regular dental visit every 6 months and regular eye exams, at least every 2 years. Reinforced importance of following a healthy diet and getting regular exercise. Do regular self testicular exam. Up-to-date with vaccination and screening colonoscopy (2) Dyslipidemia: Code(s): E78.5 - Hyperlipidemia, unspecified Plan: Reinforced importance of following low-cholesterol diet and getting regular exercise. Ordered fasting lipid panel, liver enzymes and total CK (3) Factor 5 Leiden mutation, heterozygous: Code(s): D68.51 - Activated protein C resistance (4) Elevated CK: Code(s): R74.8 - Abnormal levels of other serum enzymes (5) Nephrolithiasis: Code(s): N20.0 - Calculus of kidney Plan: Currently asymptomatic, followed by Urology, stay well-hydrated (6) Vitamin D deficiency: Code(s): E55.9 - Vitamin D deficiency, unspecified Plan: Will check vitamin-D level Orders: Orders Alanine Aminotransferase 1 Month D68.51 - Activated protein C resistance, E55.9 - Vitamin D deficiency, unspecified, E78.5 - Hyperlipidemia, unspecified, K64.8 - Other hemorrhoids, N20.0 - Calculus of kidney, R74.8 - Abnormal levels of other serum enzymes, Z00.01 - Encounter for general adult medical examination with abnormal findings Complete Blood Count Auto Diff 1 Month D68.51 - Activated protein C resistance, E55.9 - Vitamin D deficiency, unspecified, E78.5 - Hyperlipidemia, unspecified, K64.8 - Other hemorrhoids, N20.0 - Calculus of kidney, R74.8 - Abnormal levels of other serum enzymes, Z00.01 - Encounter for general adult medical examination with abnormal findings Aspartate Amino Transferase 1 Month D68.51 - Activated protein C resistance, E55.9 - Vitamin D deficiency, unspecified, E78.5 - Hyperlipidemia, unspecified, K64.8 - Other hemorrhoids, N20.0 - Calculus of kidney, R74.8 - Abnormal levels of other serum enzymes, Z00.01 - Encounter for general adult medical examination with abnormal findings Creatine Kinase Total 1 Month D68.51 - Activated protein C resistance, E55.9 - Vitamin D deficiency, unspecified, E78.5 - Hyperlipidemia, unspecified, K64.8 - Other hemorrhoids, N20.0 - Calculus of kidney, R74.8 - Abnormal levels of other serum enzymes, Z00.01 - Encounter for general adult medical examination with abnormal findings Basic Metabolic Panel Fasting 1 Month D68.51 - Activated protein C resistance, E55.9 - Vitamin D deficiency, unspecified, E78.5 - Hyperlipidemia, unspecified, K64.8 - Other hemorrhoids, N20.0 - Calculus of kidney, R74.8 - Abnormal levels of other serum enzymes, Z00.01 - Encounter for general adult medical examination with abnormal findings Lipid Panel 1 Month D68.51 - Activated protein C resistance, E55.9 - Vitamin D deficiency, unspecified, E78.5 - Hyperlipidemia, unspecified, K64.8 - Other hemorrhoids, N20.0 - Calculus of kidney, R74.8 - Abnormal levels of other serum enzymes, Z00.01 - Encounter for general adult medical examination with abnormal findings Vitamin D 25-OH Total 1 Month D68.51 - Activated protein C resistance, E55.9 - Vitamin D deficiency, unspecified, E78.5 - Hyperlipidemia, unspecified, K64.8 - Other hemorrhoids, N20.0 - Calculus of kidney, R74.8 - Abnormal levels of other serum enzymes, Z00.01 - Encounter for general adult medical examination with abnormal findings Coding Level of Care Code Est Pt Prev Care 40-64y(20806) Diagnoses Annual visit for general adult medical examination with abnormal findings Z00.01 Dyslipidemia E78.5 Factor 5 Leiden mutation, heterozygous D68.51 Elevated CK R74.8 Nephrolithiasis N20.0 Vitamin D deficiency E55.9 Additional Codes DEREJE-7 Assessment Billing - DEREJE-7 Assessment Tool: DEREJE-7 Assessment [id number] ([id number])
[2023-10-28 08:40] VITALS: BP 110/82; PULSE 81; O2SAT 97; BMI 28.7
== END 2023-10-28 13:36 | disposition home or self-care (01) ==
PROVIDERS: PCP Internal Medicine; Visit Provider Internal Medicine
DX: Z00.01 Encounter for general adult medical examination with abnormal findings (principal); E78.5 Hyperlipidemia, unspecified; D68.51 Activated protein C resistance; R74.8 Abnormal levels of other serum enzymes; N20.0 Calculus of kidney; E55.9 Vitamin D deficiency, unspecified
CPT/HCPCS: 99396

== ENCOUNTER 2024-05-09 09:00 | Outpatient (REF) | payer BC, SELFPAY ==
[2024-05-09 09:26] LABS: MANUAL DIFF FLAG NO
[2024-05-09 09:53] LABS: Basophils Absolute Auto 0.1 X10*3/uL (0.0-0.2); Basophils Percent Auto 1.5 % (0-2); Eosinophils Absolute Auto 0.1 X10*3/uL (0.0-0.4); Eosinophils Percent Auto 1.5 % (0-4); Hematocrit 47.4 % (42.0-52.0); Hemoglobin 16.1 g/dl (14.0-18.0); Imm Gran Abs Auto 0.03 X10*3/uL (0.00-0.03); Imm Gran Pct Auto 0.7 % (0.0-0.4); Lymphocytes Absolute Auto 1.6 X10*3/uL (1.2-4.9); Mean Corpuscular Hemoglobin 30.3 pg (27.0-33.0); Mean Corpuscular Volume 89.1 fL (80.0-98.0); Mean Platelet Volume 8.6 fL (9.4-12.4); Monocytes Absolute Auto 0.5 X10*3/uL (0.1-1.2); Monocytes Percent Auto 10.9 % (2-11); Neutrophils Percent Auto 47.4 % (45-73); Platelet Count 237 X10*3/uL (160-400); Red Blood Count 5.32 X10*6/uL (4.60-5.80); Red Cell Distribution Width 12.6 % (11.0-16.0); White Blood Count 4.1 X10*3/uL (4.8-10.8)
[2024-05-09 10:32] LABS: Alanine Aminotransferase 38 U/L (0-40); Anion Gap 9 (12-20); Aspartate Amino Transferase 33 U/L (5-37); Blood Urea Nitrogen 16 mg/dL (9-16); Calcium 9.7 mg/dL (8.4-10.2); Carbon Dioxide 29 mmol/L (22-29); Chloride 106 mmol/L (96-108); Cholesterol 269 mg/dL (<200); Estimated Glomerular Filt Rate > 60; Glucose Fasting 91 mg/dL (60-99); HDL Cholesterol 66 mg/dL (>40); LDL Cholesterol Calculated 185 mg/dL (<100); Potassium 4.3 mmol/L (3.3-5.1); Sodium 140 mmol/L (135-145); Triglycerides 93 mg/dL (<150)
[2024-05-09 10:33] LABS: Vitamin D 25-OH Total 20.6 ng/mL (>30)
== END 2024-05-09 09:01 | disposition home or self-care (01) ==
LOC: HO.LAB 09:00
PROVIDERS: PCP Internal Medicine; Visit Provider Internal Medicine
DX: Z00.01 Encounter for general adult medical examination with abnormal findings (principal); N20.0 Calculus of kidney; R74.8 Abnormal levels of other serum enzymes; D68.51 Activated protein C resistance; E78.5 Hyperlipidemia, unspecified; E55.9 Vitamin D deficiency, unspecified; K64.8 Other hemorrhoids
CPT/HCPCS: 36415; 80048; 80061; 82306; 82550; 84450; 84460; 85025

== ENCOUNTER 2024-06-15 15:51 | Outpatient (AMB) | payer BC, SELFPAY ==
--- NOTE | 2024-06-15 15:52 | MHC.OFFWIV ---
Intake Vital Signs 06/15/24 15:53 Height 6 ft BP 118/70 Blood Pressure Location Lt brachial Position Sitting Pulse 78 Pulse Source Pulse Oximeter Pulse Oximetry (%) 97 Intake Visit Reasons: EP-lt abdominal pain Intake Note: pt is here for left abd pain Patient Tobacco Use Status: Never used Tobacco Allergies No Known Allergies Allergy (Verified 06/15/24 15:53) Do you need a note to return to daycare/school/sports/work: No HPI HPI Comments History of Present Illness Details 53 y/o male patient who presents to the walk in clinic with c/o left side abdominal pain associated with diarrhea for 1-2 weeks now. Today reports that diarrhea has subsided, hasn't had any loose stools for 2 days now. He does endorse occasional sharp to cramping abdominal pain starting on the left lower Abd radiating to the middle abdomen. He does believe his symptoms are triggered by his poor dieting. Had Colonoscopy 3 years ago, found Diverticulosis. H eis being managed by [facility] Medical History (Updated 10/30/23 @ 17:19 by Cathy Razo MD) Annual visit for general adult medical examination with abnormal findings Vitamin D deficiency History of vitamin D deficiency History of nephrolithiasis Left lower quadrant abdominal pain Elevated CK Lyme disease Generalized anxiety disorder Factor 5 Leiden mutation, heterozygous Dyslipidemia Surgical History Hx of colonoscopy Family History Father Diabetes mellitus Mother Breast cancer Paroxysmal atrial fibrillation HTN (hypertension) Sister No problems noted. Sister No problems noted. Son Kidney stones Daughter No problems noted. Daughter No problems noted. 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 Current occupational exposures/hazards: No Cognitive needs: No Hearing needs: No Vision needs: Yes Review of Systems Const All systems reviewed & are unremarkable except as noted in HPI and below Physical Exam Vital Signs: Last Vital Signs Pulse 78 06/15/24 15:53 BP 118/70 11/22/24 15:53 Pulse Ox 97 06/15/24 15:53 Const General: no acute distress Nutritional Appearance: overweight Orientation/consciousness: patient oriented x3 Resp Effort & Inspection: normal respiratory effort Auscultation: clear to auscultation bilaterally Cardio Heart sounds: S1 normal heart sound present and S2 normal heart sound present GI Inspection: Yes Abdominal panniculus present and Yes obesity Palpation (GI): Soft to palpation, not firm, Tenderness to palpation present (GI) in the LLQ and in the LUQ, no guarding, not rigid and No hepatosplenomegaly present Auscultation: normal bowel sounds Neuro General: patient oriented x3, gait normal and moves all extremities Psych Speech and movement: Normal speech and movement present Assessment & Plan Assessment & Plan (1) Abdominal pain: Code(s): R10.9 - Unspecified abdominal pain Qualifiers: Abdominal location: left lower quadrant Qualified Code(s): R10.32 - Left lower quadrant pain Plan: Pt to call GI Tuesday and make a f/u appointment with them regarding this issue. Diarrhea has resolved. Abdominal pain is intermittent. Avoid Oily, greasy foods. Avoid spicy foods. Coding Level of Care Code Est Pt Level 3 (98529) Diagnoses Left lower quadrant abdominal pain R10.32 Abdominal location: left lower quadrant Time Spent (min) 15
[2024-06-15 15:53] VITALS: BP 118/70; PULSE 78; O2SAT 97
== END 2024-06-15 16:47 | disposition home or self-care (01) ==
PROVIDERS: PCP Internal Medicine; Visit Provider Nurse Practitioner Family
DX: R10.32 Left lower quadrant pain (principal)

== ENCOUNTER → 2024-06-15 15:51 | Outpatient (BNVA) | payer BC, SELFPAY | PROVIDERS: PCP Internal Medicine; Visit Provider Nurse Practitioner Family ==

== ENCOUNTER 2024-06-16 16:25 | Emergency (ER) | payer BC, SELFPAY ==
--- NOTE | ~2024-06-16 | CT_ITS ---
EXAMINATION: CT ABDOMEN AND PELVIS WITHOUT CONTRAST CLINICAL INFORMATION: Left flank pain. COMPARISON: CT abdomen pelvis dated September 21, 2020. TECHNIQUE: Multidetector volumetric imaging was performed from the superior aspect of the liver through the pubic symphysis. Sagittal and coronal reformatted images were obtained on the technologist's workstation. This CT examination was performed using dose optimization techniques as appropriate, variously including the following: *Automated exposure control *Adjustment of mA and/or kV according to patient size (this includes techniques or standardized protocols for targeted exams where dose is matched to indication/reason for exam; i.e. extremities or head) *Use of iterative reconstruction technique DLP: 654 mGy-cm FINDINGS: LUNG BASES: The visualized lung bases are unremarkable. LIVER, GALLBLADDER, AND BILIARY TREE: The liver is normal in size, shape, and attenuation. No biliary ductal dilatation is present. There is a 6 mm low-attenuation lesion within the right lobe near the dome. This lesion is too small for definitive characterization, however, likely represents a small cyst. There is a 1.3 cm low-attenuation lesion within the medial aspect of the right lobe, likely a cyst. The gallbladder is unremarkable with no evidence of radiopaque gallstones, gallbladder wall thickening, or obvious pericholecystic inflammatory changes. PANCREAS: Unremarkable. SPLEEN: Unremarkable. ADRENAL GLANDS: Unremarkable. KIDNEYS AND URETERS: Right side: The right kidney is normal in size, shape, and attenuation. No hydronephrosis, hydroureter, or calculi seen. No perinephric stranding. Left side: There is a 7 mm calculus within the mid left ureter (at the level of L5-S1) resulting in moderate left-sided hydroureteronephrosis. There is left-sided periureteric stranding. There is moderate to severe left-sided perinephric stranding. There is a left renal cyst measuring 2.4 x 1.6 cm. BLADDER: Unremarkable. GASTROINTESTINAL TRACT: There is a small hiatal hernia. The small and large bowel are normal in caliber. There is mild sigmoid colon diverticulosis. The appendix is unremarkable. ABDOMINAL WALL: No significant hernia is appreciated. LYMPH NODES: No lymphadenopathy. VASCULAR: No abdominal aortic aneurysm. PELVIC VISCERA: Unremarkable. OSSEOUS STRUCTURES: There are degenerative changes at L4-5 and L5-S1. CT/CT abdomen pelvis wo IV con IMPRESSION: There is a 7 mm calculus within the mid left ureter (at the level of L5-S1) resulting in moderate left-sided hydroureteronephrosis. There is left-sided periureteric stranding. There is moderate to severe left-sided perinephric stranding. Fleischner guidelines were followed. Electronically signed by: Arvind Mane DO 06/16/2024 07:29 PM EST RP
[2024-06-16 16:28] VITALS: BP 141/92; PULSE 79; RESP 16; TEMP 36.2; O2SAT 98; BMI 28.1
[2024-06-16 16:49] LABS: MANUAL DIFF FLAG NO
[2024-06-16 16:50] LABS: Basophils Absolute Auto 0.1 X10*3/uL (0.0-0.2); Basophils Percent Auto 0.9 % (0-2); Eosinophils Percent Auto 0.1 % (0-4); Hematocrit 48.4 % (42.0-52.0); Imm Gran Abs Auto 0.06 X10*3/uL (0.00-0.03); Imm Gran Pct Auto 0.7 % (0.0-0.4); Lymphocytes Absolute Auto 1.3 X10*3/uL (1.2-4.9); Lymphocytes Percent Auto 15.5 % (20-40); Mean Corpuscular HGB Conc 35.1 g/dl (31.0-36.0); Mean Corpuscular Hemoglobin 30.1 pg (27.0-33.0); Mean Corpuscular Volume 85.7 fL (80.0-98.0); Mean Platelet Volume 8.1 fL (9.4-12.4); Monocytes Absolute Auto 0.8 X10*3/uL (0.1-1.2); Monocytes Percent Auto 9.4 % (2-11); Neutrophils Absolute Auto 6.4 x10*3/uL (2.0-8.3); Neutrophils Percent Auto 73.4 % (45-73); Platelet Count 251 X10*3/uL (160-400); Red Blood Count 5.65 X10*6/uL (4.60-5.80); Red Cell Distribution Width 12.1 % (11.0-16.0); White Blood Count 8.7 X10*3/uL (4.8-10.8)
[2024-06-16 16:51] LABS: Appearance Urine Clear; Color Urine Dark Yellow; Glucose Urine UA Negative (Negative); Leukocyte Esterase Urine Negative (Negative); Nitrite Urine Negative (Negative); Specific Gravity - Urine >= 1.030 (1.005-1.025); UMIC TRIGGER UACC YES; Urine Blood Moderate (2+) (Negative); Urine Ketones Trace mg/dL (Negative); Urine Protein 30 (1+) mg/dL (Neg-Trace)
[2024-06-16 16:54] LABS: Bacteria Urine None Seen (None Seen); Hyaline Casts Urine 0-2 /LPF (0-2); RBC Urine >20 /HPF (0-2); Squamous Epithelial Cell Urine 0-2 /HPF (0-2); WBC Urine 0-5 /HPF (0-5)
[2024-06-16 17:06] LABS: Alanine Aminotransferase 41 U/L (0-40); Albumin Level 4.5 g/dL (3.5-5.0); Alkaline Phosphatase 86 U/L (39-117); Anion Gap 13 (12-20); Aspartate Amino Transferase 39 U/L (5-37); Bilirubin Total 0.8 mg/dL (0.0-1.0); Blood Urea Nitrogen 19 mg/dL (9-16); Calcium 9.9 mg/dL (8.4-10.2); Carbon Dioxide 24 mmol/L (22-29); Chloride 105 mmol/L (96-108); Creatinine Clr Calc Pharmacy 66.3; Estimated Glomerular Filt Rate 47; Glucose Random 121 mg/dL (60-115); Magnesium 2.3 mg/dL (1.6-2.6); Potassium 4.1 mmol/L (3.3-5.1); Sodium 138 mmol/L (135-145)
--- NOTE | 2024-06-16 17:19 | ED_ITS ---
HPI - Abdominal Pain General Chief Complaint: Abdominal Pain Stated Complaint: lower back and abd pain Time Seen by Provider: 06/16/24 17:14 Source: patient Mode of arrival: ambulatory Limitations: no limitations History of Present Illness ED Provider: jennifer JACKSON narrative: Patient's history of recurrent kidney stone last time had a stone few years ago comes here with off and on pain going on for last several days in the left flank area was seen by urologist ultrasound was done noticed a 7 mm stone in the kidney since earlier today patient has been having pain in the left lower abdomen with nausea off and on no gross hematuria no fever or chills no dysuria Related Data Previous Rx's ?Medication ?Instructions ?Recorded ondansetron 4 mg disintegrating 4 mg PO Q6-8H PRN nausea and 06/16/24 tablet vomiting #7 tabs oxycodone 5 mg tablet 5 mg PO Q6H PRN pain #20 tabs 06/16/24 tamsulosin 0.4 mg capsule (Flomax) 0.4 mg PO BEDTIME #7 caps 06/16/24 Allergies Allergy/AdvReac Type Severity Reaction Status Date / Time No Known Allergies Allergy Verified 06/16/24 16:28 [facility] Past Medical History Medical History (Updated 06/17/24 @ 00:00 by [facility]) Annual visit for general adult medical examination with abnormal findings Vitamin D deficiency History of vitamin D deficiency History of nephrolithiasis Left lower quadrant abdominal pain Elevated CK Lyme disease Generalized anxiety disorder Factor 5 Leiden mutation, heterozygous Dyslipidemia Surgical History Hx of colonoscopy Family History Family History Father Diabetes mellitus Mother Breast cancer Paroxysmal atrial fibrillation HTN (hypertension) Sister No problems noted. Sister No problems noted. Son Kidney stones Daughter No problems noted. Daughter No problems noted. 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 Oriented X3. No acute distress. Eyes: No pallor or icterus ENT: Pharynx normal. Oral Mucosa moist Neck: Normal inspection. Neck supple. CVS: Normal heart rate and rhythm. Pulses normal. Respiratory: No respiratory distress. Equal air entry bilateral, no wheezing/rales/rhonchi Abdomen: Soft and nontender. Bowel sounds are present, no mass palpable, L CVA tenderness+++ Skin: Skin warm and dry. Normal skin color. Normal skin turgor. Extremities: No lower extremity edema. No calf tenderness Neuro: Oriented X 3. No motor deficit. Medical Decision Making Medical Decision Making [facility] Narrative: Patient's 7 mm left distal ureteric stone with hydronephrosis much better after Toradol patient will like to go home and follow up with urologist on Tuesday Lab Data [facility] Lab Attestation statement: I reviewed the patient's lab results. 06/16/24 16:45 06/16/24 16:45 Labs: Lab Results 06/16/24 Range/Units 16:45 WBC 8.7 (4.8-10.8) X10*3/uL RBC 5.65 (4.60-5.80) X10*6/uL Hgb 17.0 (14.0-18.0) g/dl Hct 48.4 (42.0-52.0) % MCV 85.7 (80.0-98.0) fL MCH 30.1 (27.0-33.0) pg MCHC 35.1 (31.0-36.0) g/dl RDW 12.1 (11.0-16.0) % Plt Count 251 (160-400) X10*3/uL MPV 8.1 L (9.4-12.4) fL Immature Gran % (Auto) 0.7 H (0.0-0.4) % Neut % (Auto) 73.4 H (45-73) % Lymph % (Auto) 15.5 L (20-40) % [place] % (Auto) 9.4 (2-11) % Eos % (Auto) 0.1 (0-4) % Baso % (Auto) 0.9 (0-2) % Lymph # (Auto) 1.3 (1.2-4.9) X10*3/uL [place] # (Auto) 0.8 (0.1-1.2) X10*3/uL Eos # (Auto) 0.0 (0.0-0.4) X10*3/uL Baso # (Auto) 0.1 (0.0-0.2) X10*3/uL Abs Immat Gran (auto) 0.06 H (0.00-0.03) X10*3/uL Absolute Neuts (auto) 6.4 (2.0-8.3) x10*3/uL Absolute Nucleated RBC 0.000 (0.0-0.012) X10*3/uL Nucleated RBC % (auto) 0.0 (0.0-0.2) /100WBC Sodium 138 (135-145) mmol/L Potassium 4.1 (3.3-5.1) mmol/L Chloride 105 (96-108) mmol/L Carbon Dioxide 24 (22-29) mmol/L Anion Gap 13 (12-20) BUN 19 H (9-16) mg/dL Creatinine 1.55 H (0.5-1.4) mg/dL Estim Creat Clear Calc 66.3 Estimated GFR 47 Random Glucose 121 H (60-115) mg/dL Calcium 9.9 (8.4-10.2) mg/dL Magnesium 2.3 (1.6-2.6) mg/dL Total Bilirubin 0.8 (0.0-1.0) mg/dL AST 39 H (5-37) U/L ALT 41 H (0-40) U/L Alkaline Phosphatase 86 (39-117) U/L Total Protein 8.0 (6.5-8.0) g/dL Albumin 4.5 (3.5-5.0) g/dL Urine Color Dark Yellow Urine Appearance Clear Urine pH 6.0 (5.0-9.0) Ur Specific Singer >= 1.030 H (1.005-1.025) Urine Protein 30 (1+) H (Neg-Trace) mg/dL Urine Glucose (UA) Negative (Negative) mg/dL Urine Ketones Trace (Negative) mg/dL Urine Blood Moderate (2+) H (Negative) Urine Nitrite Negative (Negative) Ur Leukocyte Esterase Negative (Negative) Urine RBC >20 H (0-2) /HPF Urine WBC 0-5 (0-5) /HPF Ur Squamous Epith Cells 0-2 (0-2) /HPF Urine Bacteria None Seen (None Seen) Hyaline Casts 0-2 (0-2) /LPF Independent Interpretation I performed an independent interpretation of an: CT Scan Radiology Impression Discussion of test interpretation with radiology: I have reviewed the radiologist's reading. Radiologist Impression: CT/CT abdomen pelvis wo IV con IMPRESSION: 1. No urinary mass, calculus or obstruction is seen. 2. A 2.1 cm posterolateral right bladder wall diverticulum is noted. 3. Within the central mesentery, a 3.1 x 1.7 calcified mass is seen. Differential considerations include but are not limited to: sclerosing mesenteritis, lymphoma, carcinoid tumor and desmoid tumor. Further work-up may be indicated. 4. There is a small fat-containing umbilical hernia. 5. There are multi-level changes of the thoracolumbar spine. Fleischner guidelines were followed. Electronically signed by: Dash Reynolds MD 06/16/2024 10:40 PM [facility] Medications Administered Discontinued Medications Generic Name Dose Route Start Last Admin Trade Name Freq PRN Reason Stop Dose Admin Sodium Chloride 1,000 mls @ 999 mls/hr 06/16/24 17:17 06/16/24 19:56 Ns IV 06/16/24 18:17 Infused .Q1H1M ONE Infusion Ketorolac Tromethamine 30 mg 06/16/24 17:17 06/16/24 17:35 Ketorolac Tromethamine 30 Mg/Ml Vial IVPUSH 06/16/24 17:18 30 mg ONCE ONE Administration Morphine Sulfate 4 mg 06/16/24 17:17 06/16/24 19:56 Morphine Sulfate 4 Mg/Ml Cartridge IVPUSH 06/16/24 17:18 Not Given ONCE ONE Protocol Ondansetron HCl 4 mg 06/16/24 17:17 06/16/24 17:35 Ondansetron Hcl 4 Mg/2 Ml Vial IVPUSH 06/16/24 17:18 4 mg ONCE ONE Administration Oxycodone HCl 10 mg 06/16/24 19:41 06/16/24 19:52 Oxycodone Hcl Immed Release 5 Mg Tablet PO 06/16/24 19:42 10 mg ONCE ONE Administration Tamsulosin HCl 0.4 mg 06/16/24 19:15 06/16/24 19:52 Tamsulosin Hcl 0.4 Mg Capsule PO 06/16/24 19:16 0.4 mg ONCE ONE Administration Discharge Plan Discharge Clinical Impression: Calculus of left ureter Patient Disposition: Home, Self-Care Instructions: Ureteral Stones (ED) Additional Instructions: Drink plenty of fluids Take pain medication Flomax as prescribed See urologist for further management Prescriptions: New ondansetron 4 mg tablet,disintegrating 4 mg PO Q6-8H PRN (Reason: nausea and vomiting) Qty: 7 0RF oxycodone 5 mg tablet 5 mg PO Q6H PRN (Reason: pain) Qty: 20 0RF Rx Instructions: Partial Fill upon patient request. tamsulosin [Flomax] 0.4 mg capsule 0.4 mg PO BEDTIME Qty: 7 0RF Referrals: John Lowery MD [Physician] - 2 days Interventions: ED Discharge Assessment Last Done: 06/16/24 20:19 Discharge Date/Time: 06/16/24 20:19 Print Language: [place] Zealander
[2024-06-16] MEDS: 0.9 % Sodium Chloride 1,000 ML 999 ML IV (17:31)
[2024-06-16] MEDS: Ketorolac Tromethamine 30 MG/ML VIAL IVPUSH (17:35)
[2024-06-16] MEDS: ondansetron HCL 4 MG/2 ML VIAL IVPUSH (17:35)
--- NOTE | 2024-06-16 17:41 | PC.NURSE ---
patient requesting to hold morphine at this time, medicated per the MAR w/ fluids infusing. awaiting ct scan
[2024-06-16 18:08] VITALS: BP 120/74; PULSE 64; RESP 18; TEMP 36.9; O2SAT 98
[2024-06-16] MEDS: Tamsulosin HCL 0.4 MG CAPSULE PO (19:52)
[2024-06-16] MEDS: oxyCODONE HCl Immed Release 5 MG TABLET 10 MG PO (19:52)
[2024-06-16 20:19] VITALS: BP 120/74; PULSE 64; RESP 18; TEMP 36.9; O2SAT 98
== END 2024-06-16 20:19 | disposition home or self-care (01) ==
PROVIDERS: Physician Assistant; Emergency Provider Internal Medicine; PCP Internal Medicine
DX: N13.2 Hydronephrosis with renal and ureteral calculous obstruction (principal)
CPT/HCPCS: 36415; 74176; 80053; 81001; 83735; 85025; 96361; 96374; 96375; 99284; 99285; J1885; J2405

== ENCOUNTER 2024-08-03 09:41 | Outpatient (AMB) | payer BC, SELFPAY ==
--- NOTE | 2024-08-03 09:44 | MHC.PC.OV ---
Vital Signs 08/03/24 09:52 Height 6 ft Weight 210 lb BMI 28.5 BP 124/72 Blood Pressure Location Rt brachial Position Sitting Respiration 13 Pulse 78 Pulse Source Pulse Oximeter Pulse Oximetry (%) 100 Oxygen Delivery Method Room Air Intake Visit Reasons: riana from [facility] requesting physical Intake Note: Riana from [place] requesting physical Residential Care Facility Manager Required: No Allergies atorvastatin Adverse Reaction (Mild, Verified 08/03/24 10:30) Muscle Pain Medication List - Last Reconciled 08/03/24 by KATIA Ann No Known Home Meds Tobacco use date assessed: 08/03/24 Dental Screening Dental Screen Date: 08/03/24 Did you have a dental visit in the last 12 months?: Yes Did you have a dental problem in the last 6 months where you did not have access to dental care?: No Was dental information given to patient?: Patient has dentist HPI HPI Comments History of Present Illness Details 53 y/o M with nephrolithiasis, dyslipidemia, factor 5 Leiden mutation, chronically elevated at muscle enzymes, Diverticulosis, VIt d Def, DEREJE, BPH with LUTs, family hx of prostate ca, lymes disease, CAD (mild on abd aorta note 05/03/[address]), hiatal hernia, hepatic steatosis (ct abd 09/21/20), L renal cortical cyst (ct abd 01/18/23), multilevel DJD L4-S1 (ct abd 05/03/24), 2 liver cysts right lobe (ct abd 06/16/24) s/p knee surgery, decompression of median nerve at carpal tunnel, lithotripsy, cysto with uretoscopy Left. Health Maintenance Colon 05/13/22 Diverticulosis, hyperplastic colon polyp, internal hemorrhoids, repeat 5 years Tdap 2016 [facility] History of Present Illness The patient is a 53-year-old male presenting for the re-establishment of care, i had the pleasure of being his PCP a few years ago and am delighted to be working with him again. He has nephrolithiasis, dyslipidemia, anxiety, and concerns regarding elevated creatine kinase levels and liver cysts. The patient has experienced recurrent kidney stones, with recent episodes culminating in a 7 mm stone discovered in an ultrasound during February. He reported intermittent pain in the testicular region and sternum, prompting an ER visit where a CT scan confirmed the presence of this stone, which was eventually passed on July 07, following an appointment initially set to discuss surgical options. Post-passage, the patient reports a decrease in the intermittent pain initially associated with the kidney stones. However he continues with this leaning left upper quadrant pain he described as under his rib and D. It was short-lived. He can not attribute this to exercise at times he denies any chest pain. Shortness of breath. The dyslipidemia was addressed previously with statin therapy, which was discontinued due to significant muscle enzyme elevation. The patient has a history of elevated creatine kinase levels since stopping the statins, with current readings ranging between 399 to 484. He reports no significant muscular pain and maintains some physical activity, although he experiences fatigue during demanding activities. The presence of two hepatic cysts was noted during a recent CT scan in May. Physical Exam General: Awake, alert. No apparent distress Eyes: Sclera and conjunctiva clear bilaterally Throat: Moist mucosa membrane, pharynx within normal limits Cardiovascular: Regular rate and rhythm Respiratory: Clear to auscultation bilaterally Abdomen soft nontender Mood and affect appropriate Results - Labs: Chronic elevation of creatine kinase ranging from 399 to 484. - Imaging: CT scan identified two liver cysts described as small and presumably benign. Labs 06/16/24 normal cbc, BUN 19, Cr 1.33, egfr 47, radom glucose 123, AST 39, ALT 41 Labs 05/09/24 TC 269, LDL 185, HDL 66, Discussion Notes Throughout our discussion, I informed the patient of the need to maintain adequate hydration to prevent further kidney stone formations. We discussed the monitoring of creatine kinase levels, with a plan to reassess via blood work after a period with more consistent hydration practices. Specifically I have advised him to have a electrolyte solution prior to physical activity such as Gatorade. If he continues with the left upper quadrant pain, could consider a referral to a neuromuscular doctor for further evaluation and treatment of this elevated creatinine kinase. This has been evaluated by Rheumatology in the past with a negative finding. If he feels better with the use of Gatorade or electrolyte solution prior to physical activity then we can assume that this is some sort of myopathy. I discussed management strategies for his dyslipidemia without pharmaceutical intervention through dietary modifications and weight management. We will not want to restart a statin at any time. Further, I reassured the patient regarding his liver cysts, suggesting an ultrasound to ensure no pathological changes occur over time. Anxiety management through previous therapy was acknowledged, and ongoing supportive approaches were encouraged. Follow-up intervals were mutually agreed upon, and the patient expressed understanding and agreement with the proposed care plan. Plan - Encourage increased fluid intake with a target of 3-4 liters per day, emphasizing electrolyte-rich fluids such as Gatorade. - Recommend repeating blood work in six weeks, including fasting lipid panel and comprehensive metabolic panel. Check a stool study for H. pylori to rule out cause for abdominal pain - Order ultrasound to characterize liver cysts and monitor for any changes. - Discuss potential referral to a neuromuscular specialist if creatine kinase levels persistantly elevate. - Monitor anxiety symptoms and provide supportive care as needed. - Maintain routine follow-ups for dyslipidemia, explore lifestyle modifications to manage cholesterol levels. Patient was informed and verbally consented to the use of an ambient scribe for clinic note documentation during this visit. Patient Instructions - Drink 3 to 4 liters of water daily, including drinks like Gatorade, especially before and during physical activity. - Obtain lab tests in six weeks without fasting. - Schedule an ultrasound as instructed. - Monitor and record any changes in symptoms, particularly abdominal or musculoskeletal discomfort. - Follow up for routine care and management discussions. - Maintain regular physical activity as tolerated, ensuring hydration is adequate. - Seek medical attention if any acute or concerning symptoms arise. RTO 6 weeks 30 min fu labs/CK This note is constructed using voice recognition software. While every effort has been made to ensure accuracy in projects manager, still errors may have been included Sometimes, these errors may affect the content or meaning of the given sentence . Total time spent caring for the patient today was 50 minutes. This includes time spent before the visit reviewing the chart, time spent during the visit, and time spent after the visit on documentation [facility] Medical History (Updated 08/03/24 @ 18:01 by Mary Mcknight, [facility]) Annual visit for general adult medical examination with abnormal findings Vitamin D deficiency History of vitamin D deficiency History of nephrolithiasis Left lower quadrant abdominal pain Elevated CK Lyme disease Generalized anxiety disorder Factor 5 Leiden mutation, heterozygous Dyslipidemia Surgical History Hx of colonoscopy Family History Father Diabetes mellitus Mother Breast cancer Paroxysmal atrial fibrillation HTN (hypertension) Sister No problems noted. Sister No problems noted. Son Kidney stones Daughter No problems noted. Daughter No problems noted. 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 1. Little interest or pleasure in doing things: not at all 2. Feeling down, depressed, or hopeless: not at all 3. Trouble falling or staying asleep, or sleeping too much: not at all 4. Feeling tired or having little energy: not at all 5. Poor appetite or overeating: not at all 6. Feeling bad about yourself - or that you are a failure or have let yourself or your family down: not at all 7. Trouble concentrating on things, such as reading the newspaper or watching television: not at all 8. Moving or speaking so slowly that other people could have noticed. Or the opposite - being so fidgety or restless that you have been moving around a lot more than usual: not at all 9. Thoughts that you would be better off or of hurting yourself in some way: not at all Total score: 0 Depression Screening Interpretation: Negative Depression Screening Done: Yes 63630 - PHQ-9 Billing: Yes Source: Developed by Drs. Foster Coley, Leeanne Flores, Mika Addison and colleagues, with an educational jessee from [employer] Thrive Questionnaire Date Thrive assessed: 08/03/24 I am a: Patient What is your living situation today?: I have a steady place to live Within the past 12 months, did the food you bought not last and you didn't have the money to get more?: Never true Within the past 12 months, did you worry whether your food would run out before you got money to buy more?: Never true Do you have trouble paying for medicines?: No Do you have trouble getting transportation to medical appointments?: No Do you have trouble paying your heating and electricity bill?: No Do you have trouble taking care of your child, family member or friend?: No Do you have trouble with day-to-day activities such as bathing, preparing meals, shopping, managing finances, etc.?: No Are you currently unemployed and looking for a job?: No Are you interested in more education?: No Please select the resources that you would like help with: None Currently or been in a relationship where the following occur: No concerns reported THRIVE Score: 0 AUDIT C Alcohol Use Questionnaire (AUDIT-C) 1. How often do you have a drink containing alcohol?: Monthly or less 2. How many drinks containing alcohol do you have on a typical day when you are drinking?: 1 or 2 3. How often do you have six or more drinks on one occasion?: Never Total Score: 1 Score Reviewed/Action Taken: Yes DEREJE-7 AMB Questionnaire DEREJE-7 Date DEREJE - 7 assessed: 08/03/24 Feeling nervous, anxious, or on edge: 1 = Several days Not being able to stop or control worryin = Several days Worrying too much about different things: 1 = Several days Trouble relaxin = Not at all Being so restless that it is hard to sit still: 0 = Not at all Becoming easily annoyed or irritable: 0 = Not at all Feeling afraid as if something awful might happen: 1 = Several days Total DEREJE-7 score (0-4 normal; 5-9 mild; 10-14 moderate; 15-21 severe): 4 Source: Developed by Drs. Foster Coley, Leeanne Flores, Mika Addison and colleagues, with an educational jessee from [employer] DEREJE-7 Assessment Billing DEREJE-7 Assessment Tool: DEREJE-7 Assessment 92980 Physical exam (Primary Care) Vital Signs: Last Vital Signs Pulse 78 08/03/24 09:52 Resp 13 08/03/24 09:52 BP 124/72 08/03/24 09:52 Pulse Ox 100 08/03/24 09:52 Oxygen Delivery Method Room Air 08/03/24 09:52 BMI result Body Mass Index 28.5 Tobacco/Smoking Status: Tobacco use Status Tobacco use date assessed 08/03/24 08/03/24 09:54 Patient Tobacco Use Status Never used Tobacco 08/03/24 09:51 e-Cigarette/Vaping Use Never Used 08/03/24 09:51 PHQ-9: PHQ-9 Score PHQ-9: Total score 0 08/03/24 10:49 Depression Screening Interpretation: Negative Thrive Assessment: Date of Thrive Assessment Date Thrive assessed 08/03/24 08/03/24 09:48 Currently or been in a relationship where the following occur: No concerns reported Office Procedures Flu Questionnaire Does the patient have a severe egg allergy?: No Does the patient have severe life threatening allergies?: No Does the patient have a fever or illness today?: No Has the patient ever had Guillain-[place] Syndrome?: No Has the patient ever had any past reaction to a flu shot?: No Immunizations Fluarix Triv [id number] (PF) 45 mcg (15 mcg x 3)/0.5 mL IM syringe Per[facility] Performing Location: [facility] [place] Family Medicine Administered by: Macy Willoughby RN on 08/03/24 10:49 Dose Route Admin Location Dispensed Lot Number Expiration Date [facility] Registered Pharmacy Technician 0.5 mL IM Left Deltoid 0.5 mL [id number] 01/21/25 [id number] [employer] VIS Given Date VIS Provided VIS Publication Date 08/03/24 Single Vaccine 21 Eligibility Eligibility Date Funding Source Not [facility] Eligible 08/03/24 Private Coding Level of Care Code Est Pt Level 5 (46778) Complex EM visit Add On G2211 Diagnoses Elevated CK R74.8 Nephrolithiasis N20.0 Liver cyst K76.89 Epigastric pain R10.13 Dyslipidemia E78.5 Generalized anxiety disorder F41.1 Additional Codes DEREJE-7 Assessment Billing - DEREJE-7 Assessment Tool: DEREJE-7 Assessment 81882 ([id number]) PHQ-9 - 79571 - PHQ-9 Billing: Yes ([id number]) Assessment & Plan Assessment & Plan (1) Elevated CK: Code(s): R74.8 - Abnormal levels of other serum enzymes Category: Medical (2) Nephrolithiasis: Code(s): N20.0 - Calculus of kidney Category: Medical (3) Liver cyst: Code(s): K76.89 - Other specified diseases of liver Category: Medical (4) Epigastric pain: Code(s): R10.13 - Epigastric pain Category: Medical (5) Dyslipidemia: Code(s): E78.5 - Hyperlipidemia, unspecified Category: Medical (6) Generalized anxiety disorder: Code(s): F41.1 - Generalized anxiety disorder Category: Medical Plan . Orders: Orders CK, Total+Isoenzymes, Serum 6 Weeks R74.8 - Abnormal levels of other serum enzymes Magnesium 6 Weeks R74.8 - Abnormal levels of other serum enzymes Phosphorus 6 Weeks R74.8 - Abnormal levels of other serum enzymes US abdomen ramirez w elastography Today K76.89 - Other specified diseases of liver Comprehensive Met. Panel 6 Weeks R74.8 - Abnormal levels of other serum enzymes H pylori Ag Stool Today R10.13 - Epigastric pain Influenza [id number] Immunization Today Z23 - Encounter for immunization Patient Instructions: To reduce low-density lipoprotein (LDL) cholesterol, you can try making lifestyle changes to your diet, exercise, and other habits: Eat a heart-healthy diet Limit saturated and trans fats, and eat more foods with healthy fats, like nuts, seeds, and unsaturated oils. You can also try eating more soluble fiber, which can help reduce the amount of cholesterol your body absorbs. Foods high in soluble fiber include whole grains, fruits, and legumes. Exercise regularly Aim for at least 150 minutes of exercise per week, such as walking, swimming, or cycling. Maintain a healthy weight Losing weight can help lower LDL cholesterol, especially if you are overweight or obese. Manage stress Chronic stress can raise LDL cholesterol, so try to find healthy ways to manage it. Quit smoking Smoking can raise cholesterol and increase the risk of serious health problems. Get enough sleep Aim for 7 to 9 hours of sleep per night. You should also limit foods with cholesterol, which are found in animal products like liver, egg yolks, and whole milk dairy products.
--- OUTSIDE RECORDS SUMMARY | 2024-08-03 09:44 | XMS_ITS | Continuity of Care Document ---
Author Organization [facility] Address [address] [place] [address]- Care Team Providers Care Operations And Maintenance Manager Name Role Phone Not on Staff, PCP Primary Care Physician Unavail able Encounter 07/04/24 - 07/11/24 [facility] [place] [facility] [address], [address] [place] [address]- Attending Physician: Renetta Uriarte Admitting Physician: Renetta Uriarte Referring Physician: Renetta Uriarte Encounter Type: OutPatient One Time Results Radiology Reports * Exam Date Time Procedure Performing Provider Status 07/04/24 11:[address] Abd/Pelvis W/O Contrast Amanda Flores (Verified) Notes: (CT Abd/Pelvis W/O Contrast) Reason For Exam: Stone RESULT: CT Abd/Pelvis W/O Contrast CT Abd/Pelvis W/O Contrast Reason: Stone TECHNIQUE: Spiral CT through the abdomen and pelvis without IV contrast formatted in 3 planes. Thisstudy was performed without oral contrast. Weight- based protocol using automatic tube modulation was used to optimize exposure parameters. COMPARISON: 05/03/2024 FINDINGS: Hospice Liaison View Findings, Lines and Tubes: None. Visualized Chest: The visualized costophrenic angles are clear. No pleural effusion. Liver: The visualized portion is within normal limits for noncontrast technique . Gallbladder: No CT evidence of gallbladder pathology. Bile ducts: No biliary ductal dilation. Spleen: Visualized portion is within normal limits for noncontrast technique. Pancreas: Within normal limits for noncontrast technique Adrenal glands: No suspicious nodule Kidneys and ureters: 7 mm calculus at the left UVJ. 1 mm nonobstructing calculus at the lower pole of the right kidney. No evidence of hydronephrosis or renal contour abnormality. 2.2 cm cyst at the left lower pole cortex. Bladder: Contracted Reproductive organs: Unremarkable. Stomach, small bowel, and large bowel: Detailed evaluation is suboptimal without enteral opacification and distention. Stomach is normally distended. Small and large bowel loops are normal in caliber. Diverticulosis at the sigmoid colon. No evidence of pericolonic fat stranding. Appendix: Normal in caliber Peritoneum and retroperitoneum: No ascites or pneumoperitoneum. Lymph nodes: No enlarged lymph nodes. Blood vessels: Mild vascular calcifications but no aneurysm. Abdominal and pelvic wall: No acute abnormality Bones: No acute abnormality. Mild degenerative endplate ridging within the lower lumbar spine and lumbosacral junction. IMPRESSION: 7 mm calculus at the left UVJ without evidence of hydronephrosis 1 mm nonobstructing calculus at the lower pole of the right kidney 2.2 cm cyst at the lower pole cortex of the left kidney WSN: [id number] Ordering Physician: Renetta Beltran Dictated By: Tio Deutsch Jr, MD Dictated Date/Time: 07/04/24 2:40 pm Reviewed By: Tio Deutsch Jr, MD Signed By: Tio Deutsch Jr, MD Signed Date/Time: 07/04/24 2:40 pm Transcribed By: TOMAS Transcribed Date/Time: 07/04/24 2:33 pm Patient Care team information Care Team Personnel Name: Not on Staff, PCP Position: S Physician (General Medicine) Member Role: PCP Insurance Providers Guarantor name: [facility] Information #: 1 Payer: [facility] Member Number: [id number] Policy Number: NA Group Number: NA Health Plan Information #: 2 Payer: [facility] Member Number: [id number] Policy Number: NA Group Number: NA
[2024-08-03 09:52] VITALS: BP 124/72; PULSE 78; RESP 13; O2SAT 100; BMI 28.5
== END 2024-08-03 10:47 | disposition home or self-care (01) ==
PROVIDERS: PCP Nurse Practitioner Family; Visit Provider Nurse Practitioner Family
DX: R74.8 Abnormal levels of other serum enzymes (principal); N20.0 Calculus of kidney; K76.89 Other specified diseases of liver; R10.13 Epigastric pain; E78.5 Hyperlipidemia, unspecified; F41.1 Generalized anxiety disorder; Z23 Encounter for immunization

== ENCOUNTER → 2024-08-03 09:41 | Outpatient (BNVA) | payer BC, SELFPAY | PROVIDERS: PCP Nurse Practitioner Family; Visit Provider Nurse Practitioner Family | DX: R74.8 Abnormal levels of other serum enzymes (principal); N20.0 Calculus of kidney; K76.89 Other specified diseases of liver; R10.13 Epigastric pain; E78.5 Hyperlipidemia, unspecified; F41.1 Generalized anxiety disorder; Z23 Encounter for immunization | CPT/HCPCS: 90471; 90656; 96127 ==

== ENCOUNTER 2024-08-09 08:35 | Outpatient (REF) | payer BC, SELFPAY | END 2024-08-09 08:36 | disposition home or self-care (01) | LOC: HO.HMGCLNP 08:35 | PROVIDERS: PCP Nurse Practitioner Family; Visit Provider Nurse Practitioner Family | DX: R10.13 Epigastric pain (principal) | CPT/HCPCS: 87338 ==

== ENCOUNTER 2024-08-28 08:29 | Outpatient (REF) | payer BC, SELFPAY ==
--- NOTE | ~2024-08-28 | US_ITS ---
EXAMINATION: US ABDOMEN LIMITED WITH LIVER ELASTOGRAPHY HISTORY: K76.89 - Other specified diseases of liver TECHNIQUE: Real-time grayscale ultrasound imaging of the right upper quadrant was performed and images were reviewed. COMPARISON: Comparison is made with the prior examination dated 09/29/2016. FINDINGS: Liver: The liver is normal in size and demonstrates homogeneous echotexture. There is a cyst in the right lobe measuring 0.9 x 1.3 x 0.7 cm. No intrahepatic biliary ductal dilatation is identified. There is normal hepatopedal flow in the portal vein. Ultrasound elastography of the liver was performed with 10 separate measurements of the liver parenchyma with the patient in the supine position. Measurements were obtained approximately 2 cm below Richard's capsule and perpendicular to the capsule. Images are of satisfactory quality. The median shear wave velocity is 1.65 m/s. The interquartile range/median (IQR/median) is 0.19. Gallbladder and biliary tree: The gallbladder is unremarkable, without evidence of calculi, wall thickening, or pericholecystic fluid. There is no sonographic Whitehead sign. The common bile duct is normal in caliber measuring 4 mm. Right Kidney: The right kidney measures 11.8 cm in length. The right kidney is unremarkable, without evidence of masses, hydronephrosis, or calculi. Pancreas: The pancreas is obscured by bowel gas. Abdominal aorta and inferior vena cava: The visualized portions of the abdominal aorta and inferior vena cava are normal in caliber. There is no free fluid in the right upper quadrant. US/US abdomen ramirez w elastography IMPRESSION: The pancreas is not visualized. 1.3 cm hepatic cyst. Otherwise unremarkable right upper quadrant ultrasound. The median shear wave velocity is 1.65 m/s, corresponding to a median liver stiffness of 8.41 kPa. The IQR/median value is 0.19. This is indicative of a poor quality data set, and the estimated liver stiffness may be unreliable. Findings are indicative of a low elastography value which rules out advanced chronic liver disease in asymptomatic patients. REFERENCE: Society of Radiologists in Ultrasound Liver Stiffness Thresholds (2020): LIVER STIFFNESS THRESHOLDS: *Shear wave velocity less than 1.3 m/s (Liver Stiffness equal or less than 5 kPa): High probability of being normal. *Shear wave velocity less than 1.7 m/s (Liver Stiffness less than 9 kPa): In the absence of other known clinical signs, rules out compensated advanced chronic liver disease. *Shear wave velocity between 1.7-2.1 m/s (Liver Stiffness 9-13 kPa): Suggestive of compensated advanced chronic liver disease but need further test for confirmation. *Shear wave velocity between 2.1-2.4 m/s (Liver Stiffness 13-17 kPa): Rules in compensated advanced chronic liver disease. *Shear wave velocity greater than 2.4 m/s (Liver Stiffness over 17 kPa): Suggestive of clinically significant portal hypertension. QUALITY OF DATA SET: *IQR/Median value equal or less than 0.15 implies a quality data set. *IQR/Median value over 0.15 implies a poor quality data set. SIGNIFICANT CHANGE FROM PRIOR EXAM: Significant change if liver stiffness measurement is 10% or greater from prior exam. OTHER CONSIDERATIONS: The stage of liver fibrosis may be overestimated in the setting of acute hepatitis, liver inflammation, elevated liver function tests, hepatic vascular congestion, obstructive cholestasis, non-fasting state, and infiltrative diseases such as amyloidosis and lymphoma. In some patients with NAFLD, the liver stiffness thresholds for compensated advanced chronic liver disease may be lower. In causes other than viral hepatitis and NAFLD, liver stiffness thresholds are not well established. Electronically signed by: Foster Hernandes MD 08/28/2024 09:14 AM [facility]
== END 2024-08-28 08:30 | disposition home or self-care (01) ==
LOC: HO.US 08:29
PROVIDERS: PCP Nurse Practitioner Family; Visit Provider Nurse Practitioner Family
DX: K76.89 Other specified diseases of liver (principal)
CPT/HCPCS: 76705; 76981

== ENCOUNTER → 2024-08-28 08:32 | Outpatient (BNV) | payer BC, SELFPAY | PROVIDERS: PCP Nurse Practitioner Family; Visit Provider Radiology Diagnostic Radiology | DX: K76.89 Other specified diseases of liver (principal) | CPT/HCPCS: 76705 ==

== ENCOUNTER 2024-09-17 08:34 | Outpatient (REF) | payer BC, SELFPAY ==
--- OUTSIDE RECORDS SUMMARY | 2024-09-17 09:00 | XMS_ITS | Encounter Summary ---
Author Organization [facility] Address [address] [place] [address] Care Team Providers Care Corn Breeder Name Role Phone Unavailable Primary Care Provider Unavailabl e Encounter Details Date Type Department Care Team (Late st Contact Info) Description 08/21/2024 Lab Requisition [facility] - Main Lab [address] [place] [address] Renetta Beltran PA [address] [place] [address] Calculus of kidney Social History Tobacco Use Types Packs/Day Years Used Date Smoking Tobacco: Never Assessed Sex and Gender Information Value Date Recorded Sex Assigned at Not on file Legal Sex Male 5:10 PM EST Gender Identity Not on file Sexual Orientation Not on file documented as of this encounter Plan of Treatment Not on file documented as of this encounter Procedures Procedure Name Priority Date/Time Associated Diagnosis Comments VITAMIN D 25 HYDROXY Routine 08/21/2024 10:11 AM EST Calculus of kidney PARATHYROID HORMONE INTACT Routine 08/21/2024 10:11 AM EST Calculus of kidney documented in this encounter Results * (ABNORMAL) Vitamin D 25 hydroxy (08/21/2024 10:11 AM EST) Vit D, 25-Hydroxy 8.6(L) 30.0 - 80.0 ng/mL LAB CHEMISTRY METHOD 08/21/2024 2:49 PM EST [facility] Blood Venous blood specimen / Unknown 08/21/2024 10:11 AM EST 08/21/2024 1:32 PM EST us Renetta ZHANG LAB BLOOD ORDERABLES Final Re sult Performing Organization Address City/[facility]/ZIP Co de Phone Number [facility] [address] [place] [address], [place] [phone] * Parathyroid hormone intact (08/21/2024 10:11 AM EST) PTH 73.5 18.5 - 88.0 pcg/mL LAB CHEMISTRY METHOD 08/21/2024 2:24 PM EST [facility] Blood Venous blood specimen / Unknown 08/21/2024 10:11 AM EST 08/21/2024 1:32 PM EST Renetta ZHANG LAB BLOOD ORDERABLES Final Re sult Performing Organization Address City/[facility]/ZIP Co de Phone Number [facility] [address] [place] [address], [place] [phone] documented in this encounter Visit Diagnoses Diagnosis Calculus of kidney documented in this encounter
--- OUTSIDE RECORDS SUMMARY | 2024-09-17 09:00 | XMS_ITS | Clinical Summary ---
Author Organization [facility] Address [address] [place] [address] Phone Care Team Providers Care Information Assistant Name Role Phone Unavailable Primary Care Provider Unavailabl e Encounters Date Type Department Care Team Description 08/21/2024 Lab Requisition [facility] - Main Lab [address] [facility] [place] [address] Renetta Beltran PA Calculus of kidney from Last 3 Months Social History Tobacco Use Types Packs/Day Years Used Date Smoking Tobacco: Never Assessed Sex and Gender Information Value Date Recorded Sex Assigned at Not on file Legal Sex Male 5:10 PM EST Gender Identity Not on file Sexual Orientation Not on file Plan of Treatment Health Maintenance Due Date Last Done Comments DTaP,Tdap,and Td Vaccines (1 - Tdap) 12/21/1990 Hepatitis B Vaccines (1 of 3 - 19+ 3-dose series) 12/21/1990 Pneumococcal Vaccine: 50+ Ye ars (1 of 1 - PCV) 12/21/2021 Zoster Vaccines (1 of 2) 12/21/2021 COVID-19 Vaccine ( - 2023-2 5 season) 2024 Influenza Vaccine (#1) 2024 Cholesterol Screening (Lipid Panel) 08/21/2024 Colorectal Cancer Screening: Colonoscopy 08/21/2024 Depression Screening 08/21/2024 HIV Screening 08/21/2024 Hepatitis C Screening 08/21/2024 Social Influencers of Health Screening 08/21/2024 HIB Vaccines Aged Out No longer eligi ble based on patient's age to complete this topic HPV Vaccines Aged Out No longer eligi ble based on patient's age to complete this topic Hepatitis A Vaccines Aged Out No long er eligible based on patient's age to complete this topic IPV Vaccines Aged Out No longer eligi ble based on patient's age to complete this topic MMR Vaccines Aged Out No longer eligi ble based on patient's age to complete this topic Meningococcal ACWY Vaccine Aged Out N o longer eligible based on patient's age to complete this topic Meningococcal B Vacine Aged Out No lo nger eligible based on patient's age to complete this topic Pneumococcal Vaccine: Pediat rics (0 to 5 Years) and At-Risk Patients (6 to 64 Years) Aged Out No longer eligible b ased on patient's age to complete this topic RSV Immunization Patients Un francisco 20 months Aged Out No longer eligible b ased on patient's age to complete this topic Varicella Vaccines Aged Out No longer eligible based on patient's age to complete this topic Procedures Procedure Name Priority Date/Time Associated Diagnosis Comments VITAMIN D 25 HYDROXY Routine 08/21/2024 10:11 AM EST Calculus of kidney PARATHYROID HORMONE INTACT Routine 08/21/2024 10:11 AM EST Calculus of kidney from Last 3 Months Results * (ABNORMAL) Vitamin D 25 hydroxy (08/21/2024 10:11 AM EST) Vit D, 25-Hydroxy 8.6(L) 30.0 - 80.0 ng/mL LAB CHEMISTRY METHOD 08/21/2024 2:49 PM EST [facility] Blood Venous blood specimen / Unknown 08/21/2024 10:11 AM EST 08/21/2024 1:32 PM EST us Renetta ZHANG LAB BLOOD ORDERABLES Final Re sult [facility]) [facility] [address] [place] [address], * Parathyroid hormone intact (08/21/2024 10:11 AM EST) PTH 73.5 18.5 - 88.0 pcg/mL LAB CHEMISTRY METHOD 08/21/2024 2:24 PM EST [facility] ([facility] Blood Venous blood specimen / Unknown 08/21/2024 10:11 AM EST 08/21/2024 1:32 PM EST Renetta ZHANG LAB BLOOD ORDERABLES Final Re sult [facility] ([facility]) [facility] [address] [place] [address], from Last 3 Months Insurance [facility]
--- OUTSIDE RECORDS SUMMARY | 2024-09-17 09:00 | XMS_ITS | Continuity of Care Document ---
Author Organization [facility] Address [address] [place] [address]- Care Team Providers Care Privacy Compliance Manager Name Role Phone Not on Staff, PCP Primary Care Physician Unavail able Encounter 08/21/24 - 08/28/24 [facility] [address], [address] [place] [address]- [place] Attending Physician: Ren Lema Admitting Physician: Ren Lema Referring Physician: Ren Lema Encounter Type: OutPatient One Time Results Radiology Reports * Exam Date Time Procedure Performing Provider Status 08/21/24 11:25 AM US Renal Bladder Mila Drummond [facility] (Verified) Notes: (US Renal Bladder) Reason For Exam: Calculus of kidney RESULT: US Renal Bladder US Renal Bladder Reason: Calculus of kidney COMPARISON: 05/11/2023. FINDINGS: Right kidney: 12.8 cm in length. No hydronephrosis. Normal parenchymal thickness and echotexture. No stones. No suspicious mass. Left kidney: 12.5 cm in length. No hydronephrosis. Normal parenchymal thickness and echotexture. There is a 7 mm nonobstructing echogenic focus in the lower pole. There is a 2.3 x 2.6 x 2.0 cm cyst with thin septations and a 4 mm mural calcification. Urinary bladder: Unremarkable. The bladder volume measures 571 cc. Bilateral ureteral jets are identified on color Doppler imaging suggesting ureterovesicular junction patency. The prostate measures 20 cc in volume. IMPRESSION: 1. 7 mm nonobstructing echogenic focus in the lower pole of the left kidney. There is no evidence of obstructive uropathy. 2. 2.6 cm cyst in the lower pole of the left kidney with thin septations. WSN: [id number] Ordering Physician: Ren Pires Dictated By: Kymberly Marcial MD Dictated Date/Time: 08/21/24 11:35 a Reviewed By: Kymberly Marcial MD Signed By: Kymberly Marcial MD Signed Date/Time: 08/21/24 11:35 am Transcribed By: TOMAS Transcribed Date/Time: 08/21/24 11:32 am Patient Care team information Care Team Personnel Name: Not on Staff, PCP Position: S Physician (General Medicine) Member Role: PCP Insurance Providers Guarantor name: [facility] Information #: 1 Payer: [facility] Member Number: [id number] Policy Number: NA Group Number: NA Health Plan Information #: 2 Payer: [facility] Member Number: [id number] Policy Number: NA Group Number: [id number]
[2024-09-17 10:58] LABS: Alanine Aminotransferase 38 U/L (0-40); Albumin Level 4.2 g/dL (3.5-5.0); Alkaline Phosphatase 62 U/L (39-117); Anion Gap 14 (12-20); Aspartate Amino Transferase 32 U/L (5-37); Bilirubin Total 0.5 mg/dL (0.0-1.0); Blood Urea Nitrogen 14 mg/dL (9-16); Calcium 9.5 mg/dL (8.4-10.2); Carbon Dioxide 27 mmol/L (22-29); Chloride 103 mmol/L (96-108); Estimated Glomerular Filt Rate > 60; Glucose Random 85 mg/dL (60-115); Magnesium 2.3 mg/dL (1.6-2.6); Phosphorus 3.2 mg/dL (2.7-4.5); Potassium 4.3 mmol/L (3.3-5.1); Sodium 140 mmol/L (135-145); Total Protein 7.9 g/dL (6.5-8.0)
[2024-09-23 01:08] LABS: CK-BB None Detected (None Detected); CK-MB 0 % (<5); CK-MM 100 % (95-100); Creatine Kinase,Total,Serum 114 U/L (23-325)
== END 2024-09-17 08:35 | disposition home or self-care (01) ==
LOC: HO.HMGCLDS 08:34
PROVIDERS: PCP Nurse Practitioner Family; Visit Provider Nurse Practitioner Family
DX: R74.8 Abnormal levels of other serum enzymes (principal)
CPT/HCPCS: 36415; 80053; 82552; 83735; 84100

== ENCOUNTER 2024-09-18 13:06 | Outpatient (AMB) | payer BC, SELFPAY ==
--- NOTE | 2024-09-18 13:07 | A.OFFPC_ITS ---
Vital Signs 09/18/24 13:10 Height 6 ft Weight 210 lb BMI 28.5 BP 124/72 Blood Pressure Location Lt brachial Position Sitting Respiration 12 Pulse 77 Pulse Source Pulse Oximeter Temp 96.9 F Temp Source Oral Pulse Oximetry (%) 98 Oxygen Delivery Method Room Air Intake Visit Reasons: 6 weeks 30 min fu labs/CK Intake Note: follow up on labs It Coordinator Required: No Allergies atorvastatin Adverse Reaction (Mild, Verified 09/18/24 13:09) Muscle Pain Medication List - Last Reconciled 09/18/24 by Mary Mcknight [facility] cholecalciferol (vitamin D3) 50 mcg PO DAILY omeprazole 20 mg PO DAILY Tobacco use date assessed: 09/18/24 Dental Screening Dental Screen Date: 09/18/24 Did you have a dental visit in the last 12 months?: Yes Did you have a dental problem in the last 6 months where you did not have access to dental care?: No Was dental information given to patient?: Patient has dentist HPI HPI Comments History of Present Illness Details 53 y/o M with nephrolithiasis, dyslipid emia, factor 5 Leiden mutation, chronically elevated at muscle enzymes, Diverticulosis, VIt d Def, DEREJE, BPH with LUTs, family hx of prostate ca, lymes disease, CAD (mild on abd aorta note 05/03/[address]), hiatal hernia, hepatic steatosis (ct abd 09/21/20), L renal cortical cyst (ct abd 01/18/23), multilevel DJD L4-S1 (ct abd 05/03/24), 2 liver cysts right lobe (ct abd 06/16/24) s/p lithotripsy, cysto with uretoscopy Left. Health Maintenance Colon 05/13/22 Diverticulosis, hyperplastic colon polyp, internal hemorrhoids, repeat 5 years Tdap 2016 [facility] The patient is a 53-year-old male presenting with follow-up for laboratory results. - Known for hepatic steatosis and liver cysts; the recent ultrasound indicated a stable cyst in the right liver lobe. - Persistent concern about historical el evated CK levels, for which current results are awaited. - Recent labs, excluding CK, showed norm al outcomes; H. pylori testing was negative. - The patient experienced a self-limited flu-like illness recently, characterized by fever. - Reports difficulty dealing with health -related anxiety, exacerbated during periods of illness. - No new interventions reported for the CK or liver-related issues; the patient previously encountered elevated CK due to strenuous exercise. Hydrating before exercise. - Cont w/ pain in LUQ, below rib cage, p resent for 6 mo, no change. Lots of gas/belching. ? hiatal hernia. Physical Exam General: Awake, alert. No apparent distress Eyes: Sclera and conjunctiva clear bilaterally Mood and affect appropriate Results Results - Labs: Chronic elevation of creatine ki nase ranging from 399 to 484. - Imaging: CT scan identified two liver cysts described as small and presumably benign. Labs 06/16/24 normal cbc, BUN 19, Cr 1.33, egfr 47, radom glucose 123, AST 39, ALT 41 Labs 05/09/24 TC 269, LDL 185, HDL 66, 08/29/24 liver elastography There is a cys t in the right lobe measuring 0.9 x 1.3 x 0.7 cm. Normal elastopgraphy 08/2024 labs WNL CK pending H Pylori stool negative Discussion Notes During our discussion, I reviewed the patient's recent laboratory and imaging results, noting a stable liver cyst and normal lab values apart from the pending CK. We discussed the potential impact of anxiety on his perception of health issues and considered possible underlying causes for past CK elevations. We talked about lifestyle modifications, including hydration and exercise, to potentially manage CK levels. I recommended a cautious approach, awaiting CK results before considering further diagnostic avenues. We also touched on the importance of regular follow-ups and having open lines of communication to better manage both current and potential future concerns. We spoke about trying a proton pump inhibitor and a vitamin D supplement as a trial for his reported symptoms, and if the CK results warrant, a referral to a neuromuscular hydroelectric operator would be considered. Assessment and Plan Hepatic Steatosis and Liver Cyst: The liver ultrasound depicted a stable cyst without changes. Continuing with regular observation and no immediate intervention is necessary. Elevated Creatine Kinase (CK): Pending CK results hold the palacios to further action. The historical CK upsurge could be tied to physical activity; hence, results will dictate the need for further specialist evaluation. Anxiety: Persistent anxiety, especially health-related, discussed. Emphasis on alleviating strategies and lifestyle adjustments shared. Vit D def - start supplement LUQ pain - trial 4 weeks of PPI. Discussed EGD, stress test and HIDA scan as potential work ups in the future. Patient Instructions - Continue regular follow-up - Practice lifestyle modifications focus ing on hydration and moderate physical activity. - Be attentive to improvement in symptom s after prescribed medication regimen. - Report any worsening of symptoms immed iately. - Await current CK results for quianaa l guidance. - Maintain communication for anxiety man agement strategies. - RTO with repeat labs in 4 weeks, clarita montanez PRN Consent I obtained informed consent from the patient for trial treatment with omeprazole, discussing the potential for gastrointestinal symptom relief. The benefits and potential side effects were reviewed in detail. The patient was made aware that this is an empirical trial aimed at assessing symptom improvement, with assurance provided that further measures will be considered based on response. Consent was also obtained for a vitamin D supplement, highlighting its benefits related to fatigue and overall bone health. Patient was informed and verbally consented to the use of an ambient scribe for clinic note documentation during this visit. Total time spent caring for the patient today was 75 minutes. This includes time spent before the visit reviewing the chart, time spent during the visit, and time spent after the visit on documentation, reviewing laboratory results, diagnostic imaging, medications, performing a medically necessary evaluation, counseling on diagnoses, care coordination, ordering appropriate tests, ordering appropriate medications, review of tests performed by other providers, reporting test results with the patient, communication with other healthcare providers. [facility] Medical History (Updated 09/18/24 @ 17:22 by Mary Mcknight, [facility]) Annual visit for general adult medical examination with abnormal findings Dyslipidemia Elevated CK Factor 5 Leiden mutation, heterozygous Generalized anxiety disorder History of nephrolithiasis History of vitamin D deficiency Left lower quadrant abdominal pain Lyme disease Vitamin D deficiency Surgical History Hx of colonoscopy Family History Father Diabetes mellitus Mother Breast cancer Paroxysmal atrial fibrillation HTN (hypertension) Sister No problems noted. Sister No problems noted. Son Kidney stones Daughter No problems noted. Daughter No problems noted. 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 31005 - PHQ-9 Billing: Patient declined-do not bill Source: Developed by Drs. Foster Coley, Leeanne Flores, Mika Addison and colleagues, with an educational jessee from [employer]. Thrive Questionnaire Date Thrive assessed: 09/18/24 I am a: Patient What is your living situation today?: I have a steady place to live Within the past 12 months, did the food you bought not last and you didn't have the money to get more?: Never true Within the past 12 months, did you worry whether your food would run out before you got money to buy more?: Never true Do you have trouble paying for medicines?: No Do you have trouble getting transportation to medical appointments?: No Do you have trouble paying your heating and electricity bill?: No Do you have trouble taking care of your child, family member or friend?: No Do you have trouble with day-to-day activities such as bathing, preparing meals, shopping, managing finances, etc.?: No Are you currently unemployed and looking for a job?: No Are you interested in more education?: No Please select the resources that you would like help with: None Currently or been in a relationship where the following occur: No concerns reported THRIVE Score: 0 DEREJE-7 AMB Questionnaire DEREJE-7 Date DEREJE - 7 assessed: 09/18/24 Feeling nervous, anxious, or on edge: 0 = Not at all Not being able to stop or control worryin = Not at all Worrying too much about different things: 0 = Not at all Trouble relaxin = Not at all Being so restless that it is hard to sit still: 0 = Not at all Becoming easily annoyed or irritable: 0 = Not at all Feeling afraid as if something awful might happen: 0 = Not at all Total DEREJE-7 score (0-4 normal; 5-9 mild; 10-14 moderate; 15-21 severe): 0 Source: Developed by Drs. Foster Coley, Leeanne Flores, Mika Addison and colleagues, with an educational jessee from [employer]. DEREJE-7 Assessment Billing DEREJE-7 Assessment Tool: DEREJE-7 Assessment 73802 Physical exam (Primary Care) Vital Signs: Last Vital Signs Temp 96.9 F 09/18/24 13:10 Pulse 77 09/18/24 13:10 Resp 12 09/18/24 13:10 BP 124/72 09/18/24 13:10 Pulse Ox 98 09/18/24 13:10 Oxygen Delivery Method Room Air 09/18/24 13:10 BMI result Body Mass Index 28.5 Tobacco/Smoking Status: Tobacco use Status Tobacco use date assessed 09/18/24 09/18/24 13:12 Patient Tobacco Use Status Never used Tobacco 09/18/24 13:08 e-Cigarette/Vaping Use Never Used 09/18/24 13:08 Thrive Assessment: Date of Thrive Assessment Date Thrive assessed 09/18/24 09/18/24 13:08 Currently or been in a relationship where the following occur: No concerns rep orted Results Reviewed Results Reviewed: [place] [address] Ultrasound Report Signed Patient: Estuardo Reynaga MR#: [id number] : 1970 Acct:[id number] Age/Sex: 53 / M ADM Date: 08/28/24 Loc: HO.US Attending Dr: Mary LOMAS Ordering Physician: Mary Mcknight Date of Service: 08/28/24 Procedure(s): US abdomen ramirez w elastography Accession Number(s): [id number] cc: Mary Mcknight~ EXAMINATION: US ABDOMEN LIMITED WITH LIVER ELASTOGRAPHY HISTORY: K76.89 - Other specified diseases of liver TECHNIQUE: Real-time grayscale ultrasound imaging of the right upper quadrant was performed and images were reviewed. COMPARISON: Comparison is made with the prior examination dated 09/29/2016. FINDINGS: Liver: The liver is normal in size and demonstrates homogeneous echotexture. There is a cyst in the right lobe measuring 0.9 x 1.3 x 0.7 cm. No intrahepatic biliary ductal dilatation is identified. There is normal hepatopedal flow in the portal vein. Ultrasound elastography of the liver was performed with 10 separate measurements of the liver parenchyma with the patient in the supine position. Measurements were obtained approximately 2 cm below Richard's capsule and perpendicular to the capsule. Images are of satisfactory quality. The median shear wave velocity is 1.65 m/s. The interquartile range/median (IQR/median) is 0.19. Gallbladder and biliary tree: The gallbladder is unremarkable, without evidence of calculi, wall thickening, or pericholecystic fluid. There is no sonographic Whitehead sign. The common bile duct is normal in caliber measuring 4 mm. Right Kidney: The right kidney measures 11.8 cm in length. The right kidney is unremarkable, without evidence of masses, hydronephrosis, or calculi. Pancreas: The pancreas is obscured by bowel gas. Abdominal aorta and inferior vena cava: The visualized portions of the abdominal aorta and inferior vena cava are normal in caliber. There is no free fluid in the right upper quadrant. US/US abdomen ramirez w elastography IMPRESSION: The pancreas is not visualized. 1.3 cm hepatic cyst. Otherwise unremarkable right upper quadrant ultrasound. The median shear wave velocity is 1.65 m/s, corresponding to a median liver stiffness of 8.41 kPa. The IQR/median value is 0.19. This is indicative of a poor quality data set, and the estimated liver stiffness may be unreliable. Findings are indicative of a low elastography value which rules out advanced chronic liver disease in asymptomatic patients. REFERENCE: Society of Radiologists in Ultrasound Liver Stiffness Thresholds (2020): LIVER STIFFNESS THRESHOLDS: *Shear wave velocity less than 1.3 m/s (Liver Stiffness equal or less than 5 kPa): High probability of being normal. *Shear wave velocity less than 1.7 m/s (Liver Stiffness less than 9 kPa): In the absence of other known clinical signs, rules out compensated advanced chronic liver disease. *Shear wave velocity between 1.7-2.1 m/s (Liver Stiffness 9-13 kPa): Suggestive of compensated advanced chronic liver disease but need further test for confirmation. *Shear wave velocity between 2.1-2.4 m/s (Liver Stiffness 13-17 kPa): Rules in compensated advanced chronic liver disease. *Shear wave velocity greater than 2.4 m/s (Liver Stiffness over 17 kPa): Suggestive of clinically significant portal hypertension. QUALITY OF DATA SET: *IQR/Median value equal or less than 0.15 implies a quality data set. *IQR/Median value over 0.15 implies a poor quality data set. SIGNIFICANT CHANGE FROM PRIOR EXAM: Significant change if liver stiffness measurement is 10% or greater from prior exam. OTHER CONSIDERATIONS: The stage of liver fibrosis may be overestimated in the setting of acute hepatitis, liver inflammation, elevated liver function tests, hepatic vascular congestion, obstructive cholestasis, non-fasting state, and infiltrative diseases such as amyloidosis and lymphoma. In some patients with NAFLD, the liver stiffness thresholds for compensated advanced chronic liver disease may be lower. In causes other than viral hepatitis and NAFLD, liver stiffness thresholds are not well established. Electronically signed by: Foster Hernandes MD 08/28/2024 09:14 AM EST Dictated By: Foster Hernandes MD Signed By: <Electronically signed by Foster Hernandes MD in OV> 08/28/24 0914 DD/ 0842 Coding Level of Care Code Est Pt Level 5 (08430) Complex EM visit Add On G2211 Diagnoses Dyslipidemia E78.5 Elevated CK R74.8 Epigastric pain R10.13 Coronary artery disease involving enterprise coronary artery of enterprise heart without angina pectoris I25.10 Coronary Disease-Associated Artery/Lesion type: enterprise artery [place] vs. transplanted heart: enterprise heart Associated angina: without angina Liver cyst K76.89 Generalized anxiety disorder F41.1 Vitamin D deficiency E55.9 CPT Codes PROLONG OUTPT/OFFICE VIS - G2212 Additional Codes DEREJE-7 Assessment Billing - DEREJE-7 Assessment Tool: DEREJE-7 Assessment 53162 ([id number]) Assessment & Plan Assessment & Plan (1) Dyslipidemia: Code(s): E78.5 - Hyperlipidemia, unspecified Category: Medical (2) Elevated CK: Code(s): R74.8 - Abnormal levels of other serum enzymes Category: Medical (3) Epigastric pain: Code(s): R10.13 - Epigastric pain Category: Medical (4) CAD (coronary artery disease): Code(s): I25.10 - Atherosclerotic heart disease of enterprise coronary artery without angina pectoris Category: Medical Qualifiers: Coronary Disease-Associated Artery/Lesion type: enterprise artery [place] vs. transplanted heart: enterprise heart Associated angina: without angina Qualified Code(s): I25.10 - Atherosclerotic heart disease of enterprise coronary artery without angina pectoris (5) Liver cyst: Code(s): K76.89 - Other specified diseases of liver Category: Medical (6) Generalized anxiety disorder: Code(s): F41.1 - Generalized anxiety disorder Category: Medical (7) Vitamin D deficiency: Code(s): E55.9 - Vitamin D deficiency, unspecified Category: Medical Plan . Orders: Orders Vitamin D 25-OH Total Today E55.9 - Vitamin D deficiency, unspecified, I25.10 - Atherosclerotic heart disease of enterprise coronary artery without angina pectoris Lipid Panel Today E55.9 - Vitamin D deficiency, unspecified, I25.10 - Athero sclerotic heart disease of enterprise coronary artery without angina pectoris Medications: New omeprazole 20 mg PO DAILY 30 caps 0RF cholecalciferol (vitamin D3) 50 mcg PO DAILY 90 caps 2RF
[2024-09-18 13:10] VITALS: BP 124/72; PULSE 77; RESP 12; TEMP 36.1; O2SAT 98; BMI 28.5
--- OUTSIDE RECORDS SUMMARY | 2024-09-18 16:04 | XMS_ITS | Encounter Summary ---
Author Organization [employer] Address [address] [place] [address] Care Team Providers Care Rehabilitator Name Role Phone Unavailable Primary Care Provider Unavailabl e Encounter Details Date Type Department Care Team (Late st Contact Info) Description 08/21/2024 Lab Requisition [facility] - Main Lab [address] [place] [address] Renetta Beltran PA [address] [place] [address] Calculus of kidney Social History Tobacco Use [...] LAB CHEMISTRY METHOD 08/21/2024 2:49 PM EST [facility] ([facility] Blood Venous blood specimen / Unknown 08/21/2024 10:11 AM EST 08/21/2024 1:32 PM EST us Renetta ZHANG LAB BLOOD ORDERABLES Final Re sult Performing Organization Address City/[facility]/ZIP Co de Phone Number [facility] [address] [place] [address], [place] [phone] * Parathyroid hormone intact (08/21/2024 10:11 AM EST) PTH 73.5 18.5 - 88.0 pcg/mL LAB CHEMISTRY METHOD 08/21/2024 2:24 PM EST [facility] Blood Venous blood specimen / Unknown 08/21/2024 10:11 AM EST 08/21/2024 1:32 PM EST Renetta ZHANG LAB BLOOD ORDERABLES Final Re sult Performing Organization Address City/[facility]/ZIP Co de Phone Number [facility] [address] [place] [address], [place] [phone] documented in this encounter Visit Diagnoses Diagnosis Calculus of kidney documented in this encounter
--- OUTSIDE RECORDS SUMMARY | 2024-09-18 16:04 | XMS_ITS | Clinical Summary ---
Author Organization [address] [facility] Address [address] [place] [address] Phone Care Team Providers Care Certified Nursing Attendant Name Role Phone Unavailable Primary Care Provider Unavailabl e Encounters Date Type Department Care Team Description 08/21/2024 Lab Requisition [facility] - Main Lab [address] [facility] [place] [address] Renetta Beltran PA Calculus of [...] LAB CHEMISTRY METHOD 08/21/2024 2:49 PM EST [facility] Blood Venous blood specimen / Unknown 08/21/2024 10:11 AM EST 08/21/2024 1:32 PM EST us Renetta ZHANG LAB BLOOD ORDERABLES Final Re sult [facility]) [facility] [address] [place] [address], * Parathyroid hormone intact (08/21/2024 10:11 AM EST) PTH 73.5 18.5 - 88.0 pcg/mL LAB CHEMISTRY METHOD 08/21/2024 2:24 PM EST [facility] ([facility] Blood Venous blood specimen / Unknown 08/21/2024 10:11 AM EST 08/21/2024 1:32 PM EST Renetta ZHANG LAB BLOOD ORDERABLES Final Re sult [facility] ([facility]) [facility] [address] [place] [address], from Last 3 Months Insurance [facility]
== END 2024-09-18 14:08 | disposition home or self-care (01) ==
PROVIDERS: PCP Nurse Practitioner Family; Visit Provider Nurse Practitioner Family
DX: E78.5 Hyperlipidemia, unspecified (principal); R74.8 Abnormal levels of other serum enzymes; R10.13 Epigastric pain; I25.10 Atherosclerotic heart disease of native coronary artery without angina pectoris; K76.89 Other specified diseases of liver; F41.1 Generalized anxiety disorder; E55.9 Vitamin D deficiency, unspecified

== ENCOUNTER → 2024-09-18 13:06 | Outpatient (BNVA) | payer BC, SELFPAY | PROVIDERS: PCP Nurse Practitioner Family; Visit Provider Nurse Practitioner Family | DX: E78.5 Hyperlipidemia, unspecified (principal); R74.8 Abnormal levels of other serum enzymes; R10.13 Epigastric pain; I25.10 Atherosclerotic heart disease of native coronary artery without angina pectoris; K76.89 Other specified diseases of liver; F41.1 Generalized anxiety disorder; E55.9 Vitamin D deficiency, unspecified | CPT/HCPCS: 96127 ==

== ENCOUNTER 2024-10-17 08:31 | Outpatient (AMB) | payer BC, SELFPAY ==
--- NOTE | 2024-10-17 08:32 | A.OFFPC_ITS ---
Vital Signs 10/17/24 08:36 Height 6 ft Weight 212 lb 6 oz BMI 28.8 BP 122/70 Blood Pressure Location Lt brachial Position Sitting Respiration 12 Pulse 84 Pulse Source Pulse Oximeter Temp 96.9 F Temp Source Oral Pulse Oximetry (%) 96 Oxygen Delivery Method Room Air Intake Visit Reasons: 4 WEEKS 30 MIN FU LUQ PAIN PPI START Intake Note: 4 Week follow up Database Report Writer Required: No Allergies atorvastatin Adverse Reaction (Mild, Verified 10/17/24 08:42) Muscle Pain Medication List - Last Reconciled 10/17/24 by Mary Mcknight, [facility]- cholecalciferol (vitamin D3) 50 mcg PO DAILY omeprazole 20 mg PO DAILY Tobacco use date assessed: 10/17/24 Dental Screening Dental Screen Date: 10/17/24 Did you have a dental visit in the last 12 months?: Yes Did you have a dental problem in the last 6 months where you did not have access to dental care?: No Was dental information given to patient?: Patient has dentist HPI HPI Comments History of Present Illness Details 53 y/o M with nephrolithiasis, dyslipid emia, factor 5 Leiden mutation, chronically elevated at muscle enzymes, Diverticulosis, VIt d Def, DEREJE, BPH with LUTs, family hx of prostate ca, lymes disease, CAD (mild on abd aorta note 05/03/[address]), hiatal hernia, hepatic steatosis (ct abd 09/21/20), L renal cortical cyst (ct abd 01/18/23), multilevel DJD L4-S1 (ct abd 05/03/24), 2 liver cysts right lobe (ct abd 06/16/24) s/p lithotripsy, cysto with uretoscopy Left. Health Maintenance Colon 05/13/22 Diverticulosis, hyperplastic colon polyp, internal hemorrhoids, repeat 5 years Tdap 2016 [facility] Here today to fu on LUQ pain. LUQ pain worse since last time. can radiate into L lower back and left upper chest. Worse when lying on L side. Feels more present even w/ distraction More active physically - longer time to recover; aches in back and hips. Cont to hydrate well & stretch. Has known hiatal hernia noted on CT Scan PPI has resolved all heartburn and gas sx. Though has not improved his LUQ sx. Vit d has helped lethargy. Taking daily supplement. Physical Exam General: Awake, alert. No apparent distress Eyes: Sclera and conjunctiva clear bilaterally Mood and affect appropriate Results Labs: Chronic elevation of creatine kinase ranging from 399 to 484. - Imaging: CT scan identified two liver cysts described as small and presumably benign. Labs 06/16/24 normal cbc, BUN 19, Cr 1.33, egfr 47, radom glucose 123, AST 39, ALT 41 Labs 05/09/24 TC 269, LDL 185, HDL 66, 08/29/24 liver elastography There is a cys t in the right lobe measuring 0.9 x 1.3 x 0.7 cm. Normal elastopgraphy 08/2024 labs WNL CK normal H Pylori stool negative Plan: Barium swallow to eval hiatal hernia. This is the working dx as cause of pain at this time Cont PPI as this has resolved GERD sx. Cont to hydrate and stretch. Consider adding Magnesium and Manganese to help w/ muscle aches/pains after reviewing w/ Uro d/t kidney stones. Cont Vit D supplement My office will coordinate fu appt once Barium swallow is back. Total time spent caring for the patient today was 45 minutes. This includes time spent before the visit reviewing the chart, time spent during the visit, and time spent after the visit on documentation, reviewing laboratory results, diagnostic imaging, medications, performing a medically necessary evaluation, counseling on diagnoses, care coordination, ordering appropriate tests, ordering appropriate medications, review of tests performed by other providers, reporting test results with the patient, communication with other healthcare providers. [facility] Medical History Annual visit for general adult medical examination with abnormal findings Vitamin D deficiency History of vitamin D deficiency History of nephrolithiasis Left lower quadrant abdominal pain Elevated CK Lyme disease Generalized anxiety disorder Factor 5 Leiden mutation, heterozygous Dyslipidemia Surgical History Hx of colonoscopy (~2020) Family History Father Diabetes mellitus Mother Breast cancer Paroxysmal atrial fibrillation HTN (hypertension) Sister No problems noted. Sister No problems noted. Son Kidney stones Daughter No problems noted. Daughter No problems noted. 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 Current occupational exposures/hazards: No Cognitive needs: No Hearing needs: No Vision needs: Yes Questionnaire Thrive Questionnaire Date Thrive assessed: 10/17/24 I am a: Patient What is your living situation today?: I have a steady place to live Within the past 12 months, did the food you bought not last and you didn't have the money to get more?: Never true Within the past 12 months, did you worry whether your food would run out before you got money to buy more?: Never true Do you have trouble paying for medicines?: No Do you have trouble getting transportation to medical appointments?: No Do you have trouble paying your heating and electricity bill?: No Do you have trouble taking care of your child, family member or friend?: No Do you have trouble with day-to-day activities such as bathing, preparing meals, shopping, managing finances, etc.?: No Are you currently unemployed and looking for a job?: No Are you interested in more education?: No Please select the resources that you would like help with: None Currently or been in a relationship where the following occur: No concerns reported THRIVE Score: 0 DEREJE-7 AMB Questionnaire DEREJE-7 Date DEREJE - 7 assessed: 09/18/24 Source: Developed by Drs. Foster Coley, Leeanne Flores, Mika Addison and colleagues, with an educational jessee from [employer]. Physical exam (Primary Care) Vital Signs: Last Vital Signs Temp 96.9 F 10/17/24 08:36 Pulse 84 10/17/24 08:36 Resp 12 10/17/24 08:36 BP 122/70 10/17/24 08:36 Pulse Ox 96 10/17/24 08:36 Oxygen Delivery Method Room Air 10/17/24 08:36 BMI result Body Mass Index 28.8 Tobacco/Smoking Status: Tobacco use Status Tobacco use date assessed 10/17/24 10/17/24 08:34 Patient Tobacco Use Status Never used Tobacco 10/17/24 08:34 e-Cigarette/Vaping Use Never Used 10/17/24 08:34 Thrive Assessment: Date of Thrive Assessment Date Thrive assessed 10/17/24 10/17/24 08:34 Currently or been in a relationship where the following occur: No concerns reported Coding Level of Care Code Est Pt Level 5 (31986) Complex EM visit Add On G2211 Diagnoses Epigastric pain R10.13 Hiatal hernia with gastroesophageal reflux K44.9; K21.9 Generalized anxiety disorder F41.1 Vitamin D deficiency E55.9 Nephrolithiasis N20.0 Assessment & Plan Assessment & Plan (1) Epigastric pain: Code(s): R10.13 - Epigastric pain Category: Medical (2) Hiatal hernia with gastroesophageal reflux: Comment: CT 2023 Code(s): K44.9 - Diaphragmatic hernia without obstruction or gangrene; K21.9 - Gastro- esophageal reflux disease without esophagitis Category: Medical (3) Generalized anxiety disorder: Code(s): F41.1 - Generalized anxiety disorder Category: Medical (4) Vitamin D deficiency: Code(s): E55.9 - Vitamin D deficiency, unspecified Category: Medical (5) Nephrolithiasis: Code(s): N20.0 - Calculus of kidney Category: Medical Plan . Orders: Orders FL barium swallow Today K21.9 - Gastro-esophageal reflux disease without esophagitis, K44.9 - Diaphragmatic hernia without obstruction or gangrene, R10.13 - Epigastric pain Medications: Refilled omeprazole 20 mg PO DAILY 30 caps 2RF
[2024-10-17 08:36] VITALS: BP 122/70; PULSE 84; RESP 12; TEMP 36.1; O2SAT 96; BMI 28.8
== END 2024-10-17 09:15 | disposition home or self-care (01) ==
LOC: HO.HMCFM 08:31
PROVIDERS: PCP Nurse Practitioner Family; Visit Provider Nurse Practitioner Family
DX: R10.13 Epigastric pain (principal); K44.9 Diaphragmatic hernia without obstruction or gangrene; K21.9 Gastro-esophageal reflux disease without esophagitis; F41.1 Generalized anxiety disorder; E55.9 Vitamin D deficiency, unspecified; N20.0 Calculus of kidney

== ENCOUNTER 2025-01-09 09:55 | Outpatient (REF) | payer BC, SELFPAY ==
--- NOTE | ~2025-01-09 | FL_ITS ---
EXAMINATION: XR BARIUM SWALLOW CLINICAL INFORMATION: History of known hiatal hernia with epigastric pain COMPARISON: CT abdomen 06/16/2024 TECHNIQUE: Routine barium swallow was performed with thick barium and barium coated saltine crackers in upright view and thin barium in prone lying position. FINDINGS: Following oral administration of thick barium there is normal propagation bolus from the oral cavity through the pharynx, esophagus into stomach without obstruction narrowing. On oral administration of saltine crackers coated barium there is normal oral mastication and propagation of bolus from the oral cavity through the pharynx, esophagus into stomach. On placing patient supine and prone lying there is a small sliding hiatal hernia with mild gastroesophageal reflux. The mucosal pattern of the esophagus is normal. No laryngeal penetration or aspiration seen. There is no retention of food in the valleculae or piriform sinuses. FLUOROSCOPY TIME: 3 minutes and 18 seconds DOSE AREA PRODUCT: 2156 uGy-m2 (microgray-meter squared) FL/FL barium swallow IMPRESSION: Small sliding hiatal hernia with mild to moderate gastroesophageal reflux with Electronically signed by: Daniel rCain MD 01/09/2025 01:59 PM EDT
--- OUTSIDE RECORDS SUMMARY | 2025-01-09 11:04 | XMS_ITS | Encounter Summary ---
Author Organization [employer] Address [address] [place] [address] Care Team Providers Care Cremator Name Role Phone Unavailable Primary Care Provider Unavailabl e Encounter Details Date Type Department Care Team ([facility] st Contact Info) Description 08/21/2024 Lab Requisition [facility] - Main Lab [address] [place] [id number] Renetta Beltran PA [address] [place] [address] Calculus of kidney Social History Tobacco Use [...] LAB CHEMISTRY METHOD 08/21/2024 2:49 PM EST [facility] ([facility] Blood Venous blood specimen / Unknown 08/21/2024 10:11 AM EST 08/21/2024 1:32 PM EST us Renetta ZHANG LAB BLOOD ORDERABLES Final Re sult [facility] [address] [place] [address], [place] [phone] * Parathyroid hormone intact (08/21/2024 10:11 AM EST) PTH 73.5 18.5 - 88.0 pcg/mL LAB CHEMISTRY METHOD 08/21/2024 2:24 PM EST [facility] Blood Venous blood specimen / Unknown 08/21/2024 10:11 AM EST 08/21/2024 1:32 PM EST Renetta ZHANG LAB BLOOD ORDERABLES Final Re sult [facility] [address] [place] [address], [place] [phone] documented in this encounter Visit Diagnoses Diagnosis Calculus of kidney documented in this encounter
== END 2025-01-09 09:56 | disposition home or self-care (01) ==
LOC: HO.XRAY 09:55
PROVIDERS: PCP Nurse Practitioner Family; Visit Provider Nurse Practitioner Family
DX: R10.13 Epigastric pain (principal); K21.9 Gastro-esophageal reflux disease without esophagitis; K44.9 Diaphragmatic hernia without obstruction or gangrene
CPT/HCPCS: 74220

== ENCOUNTER → 2025-01-09 09:56 | Outpatient (BNV) | payer BC, SELFPAY | PROVIDERS: PCP Nurse Practitioner Family; Visit Provider Radiology Diagnostic Radiology | DX: K44.9 Diaphragmatic hernia without obstruction or gangrene (principal) | CPT/HCPCS: 74246 ==

== ENCOUNTER 2025-01-16 08:27 | Outpatient (AMB) | payer BC, SELFPAY ==
--- NOTE | 2025-01-16 08:36 | MHC.PC.OV ---
Vital Signs 01/16/25 08:39 Height 6 ft Weight 206 lb BMI 27.9 BP 112/70 Blood Pressure Location Lt brachial Position Sitting Respiration 12 Pulse 69 Pulse Source Pulse Oximeter Temp 97.6 F Temp Source Oral Pulse Oximetry (%) 97 Oxygen Delivery Method Room Air Intake Visit Reasons: FU Barium swallow results In person 30 min Intake Note: Follow up on swallow results City Attorney Required: No Allergies atorvastatin Adverse Reaction (Mild, Verified 01/16/25 08:37) Muscle Pain Medication List - Last Reconciled 01/16/25 by Mary Mcknight, [employer]- pantoprazole 20 mg PO DAILY Tobacco use date assessed: 01/16/25 Dental Screening Dental Screen Date: 01/16/25 Did you have a dental visit in the last 12 months?: Yes Did you have a dental problem in the last 6 months where you did not have access to dental care?: No Was dental information given to patient?: Patient has dentist HPI HPI Comments History of Present Illness Details 54 y/o M with nephrolithiasis, dyslipidemia, factor 5 Leiden mutation, chronically elevated at muscle enzymes, Diverticulosis, VIt d Def, DEREJE, BPH with LUTs, family hx of prostate ca, lymes disease, CAD (mild on abd aorta note 05/03/[address]), hiatal hernia, hepatic steatosis (ct abd 09/21/20), L renal cortical cyst (ct abd 01/18/23), multilevel DJD L4-S1 (ct abd 05/03/24), 2 liver cysts right lobe (ct abd 06/16/24) s/p lithotripsy, cysto with uretoscopy Left. Health Maintenance Colon 05/13/22 Diverticulosis, hyperplastic colon polyp, internal hemorrhoids, repeat 5 years Tdap 2016 [facility] Here today to fu on Barium swallow results and chronic pain: Vit D and Omeprazole Took for 2 months Helped eructation Stopped PPI d/t insurance denial 1 mo before Barium swallow. Results as below. Since stopping, has had no change in his sx. Reviewed home diary of sx: Tightness under L ribs into L anterior hip Describes hip on L and low back as out of line Stretching and doing yoga For 16 days started [employer] down 3lbs Pain worse on on L side Fullness under ribs (feels better w/ PPI) Sharp intermittent back pain Laying on back resolves his sx Physical Exam General: Awake, alert. No apparent distress Eyes: Sclera and conjunctiva clear bilaterally Mood and affect appropriate Results Labs: Chronic elevation of creatine kinase ranging from 399 to 484. - Imaging: CT scan identified two liver cysts described as small and presumably benign. Labs 06/16/24 normal cbc, BUN 19, Cr 1.33, egfr 47, radom glucose 123, AST 39, ALT 41 Labs 05/09/24 TC 269, LDL 185, HDL 66, 08/29/24 liver elastography There is a cyst in the right lobe measuring 0.9 x 1.3 x 0.7 cm. Normal elastopgraphy 08/2024 labs WNL CK normal H Pylori stool negative During the discussion, I reviewed the patient's history of hiatal hernia and its correlation with symptoms of acid reflux. We discussed discontinuation of Omeprazole due to insurance coverage issues and explored alternative medications in the same drug class, pantoprazole, which I prescribed. Musculoskeletal pain was assessed, with potential causes such as costochondritis and fibromyalgia considered due to persistent left-side discomfort. I advised physical therapy with a specific focus on manipulative techniques to address the hip and back tightness. Lifestyle changes, like weight management and dietary considerations, were discussed as part of managing acid reflux. I reviewed potential non-surgical management for the hiatal hernia. Follow-up with physical therapy was encouraged for musculoskeletal issues. I acknowledged the patient's history of kidney stones with a plan for ongoing monitoring. Plan: PT referral Cont PPI (pantoprazole as omeprazole not covered) ok to try APAP for pain Cont to hydrate and stretch. Consider adding Magnesium and Manganese to help w/ muscle aches/pains after reviewing w/ Uro d/t kidney stones. Stop Vit D supplement during Summer RTO Mar for fu sooner PRN Total time spent caring for the patient today was 45 minutes. This includes time spent before the visit reviewing the chart, time spent during the visit, and time spent after the visit on documentation, reviewing laboratory results, diagnostic imaging, medications, performing a medically necessary evaluation, counseling on diagnoses, care coordination, ordering appropriate tests, ordering appropriate medications, review of tests performed by other providers, reporting test results with the patient, communication with other healthcare providers. [facility] Medical History (Updated 01/16/25 @ 09:24 by Mary Mcknight, [facility]) Annual visit for general adult medical examination with abnormal findings Dyslipidemia Elevated CK Factor 5 Leiden mutation, heterozygous Generalized anxiety disorder History of nephrolithiasis History of vitamin D deficiency Left lower quadrant abdominal pain Lyme disease Vitamin D deficiency Surgical History (Updated 12/05/24 @ 08:42 by Nida Villavicencio) Hx of colonoscopy (~05/13/22) Family History Father Diabetes mellitus Mother Breast cancer Paroxysmal atrial fibrillation HTN (hypertension) Sister No problems noted. Sister No problems noted. Son Kidney stones Daughter No problems noted. Daughter No problems noted. 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 1. Little interest or pleasure in doing things: not at all 2. Feeling down, depressed, or hopeless: not at all 3. Trouble falling or staying asleep, or sleeping too much: not at all 4. Feeling tired or having little energy: not at all 5. Poor appetite or overeating: not at all 6. Feeling bad about yourself - or that you are a failure or have let yourself or your family down: not at all 7. Trouble concentrating on things, such as reading the newspaper or watching television: not at all 8. Moving or speaking so slowly that other people could have noticed. Or the opposite - being so fidgety or restless that you have been moving around a lot more than usual: not at all 9. Thoughts that you would be better off or of hurting yourself in some way: not at all Total score: 0 Depression Screening Interpretation: Negative Depression Screening Done: Yes 46418 - PHQ-9 Billing: Yes Source: Developed by Drs. Foster Coley, Mika Arevalo and colleagues, with an educational jessee from [employer]. Thrive Questionnaire Date Thrive assessed: 01/16/25 I am a: Patient What is your living situation today?: I have a steady place to live Within the past 12 months, did the food you bought not last and you didn't have the money to get more?: Never true Within the past 12 months, did you worry whether your food would run out before you got money to buy more?: Never true Do you have trouble paying for medicines?: No Do you have trouble getting transportation to medical appointments?: No Do you have trouble paying your heating and electricity bill?: No Do you have trouble taking care of your child, family member or friend?: No Do you have trouble with day-to-day activities such as bathing, preparing meals, shopping, managing finances, etc.?: No Are you currently unemployed and looking for a job?: No Are you interested in more education?: No Please select the resources that you would like help with: None Currently or been in a relationship where the following occur: No concerns reported THRIVE Score: 0 DEREJE-7 AMB Questionnaire DEREJE-7 Date DEREJE - 7 assessed: 01/16/25 Feeling nervous, anxious, or on edge: 0 = Not at all Not being able to stop or control worryin = Not at all Worrying too much about different things: 0 = Not at all Trouble relaxin = Not at all Being so restless that it is hard to sit still: 0 = Not at all Becoming easily annoyed or irritable: 0 = Not at all Feeling afraid as if something awful might happen: 0 = Not at all Total DEREJE-7 score (0-4 normal; 5-9 mild; 10-14 moderate; 15-21 severe): 0 Source: Developed by Drs. Foster Coley, Mika Arevalo and colleagues, with an educational jessee from [employer]. DEREJE-7 Assessment Billing DEREJE-7 Assessment Tool: DEREJE-7 Assessment 32765 Physical exam (Primary Care) Vital Signs: Last Vital Signs Temp 97.6 F 01/16/25 08:39 Pulse 69 01/16/25 08:39 Resp 12 01/16/25 08:39 BP 112/70 01/16/25 08:39 Pulse Ox 97 01/16/25 08:39 Oxygen Delivery Method Room Air 01/16/25 08:39 BMI result Body Mass Index 27.9 Tobacco/Smoking Status: Tobacco use Status Tobacco use date assessed 01/16/25 01/16/25 08:40 Patient Tobacco Use Status Never used Tobacco 01/16/25 08:37 e-Cigarette/Vaping Use Never Used 01/16/25 08:37 PHQ-9: PHQ-9 Score PHQ-9: Total score 0 01/16/25 08:37 Depression Screening Interpretation: Negative Thrive Assessment: Date of Thrive Assessment Date Thrive assessed 01/16/25 01/16/25 08:37 Currently or been in a relationship where the following occur: No concerns reported Results Reviewed Results Reviewed: COMPARISON: CT abdomen 06/16/2024 TECHNIQUE: Routine barium swallow was performed with thick barium and barium coated saltine crackers in upright view and thin barium in prone lying position. FINDINGS: Following oral administration of thick barium there is normal propagation bolus from the oral cavity through the pharynx, esophagus into stomach without obstruction narrowing. On oral administration of saltine crackers coated barium there is normal oral mastication and propagation of bolus from the oral cavity through the pharynx, esophagus into stomach. On placing patient supine and prone lying there is a small sliding hiatal hernia with mild gastroesophageal reflux. The mucosal pattern of the esophagus is normal. No laryngeal penetration or aspiration seen. There is no retention of food in the valleculae or piriform sinuses. FLUOROSCOPY TIME: 3 minutes and 18 seconds DOSE AREA PRODUCT: 2156 uGy-m2 (microgray-meter squared) FL/FL barium swallow IMPRESSION: Small sliding hiatal hernia with mild to moderate gastroesophageal reflux with Electronically signed by: Daniel Crain MD 01/09/2025 01:59 PM EDT RP Coding Level of Care Code Est Pt Level 5 (99407) Complex EM visit Add On G2211 Diagnoses Hiatal hernia with gastroesophageal reflux K44.9; K21.9 Left hip pain M25.552 Chronic left-sided low back pain without sciatica M54.50; G89.29 Chronicity: chronic Back pain laterality: left Sciatica presence: without sciatica Rib pain on left side R07.81 Additional Codes DEREJE-7 Assessment Billing - DEREJE-7 Assessment Tool: DEREJE-7 Assessment 49280 ([id number]) PHQ-9 - 57199 - PHQ-9 Billing: Yes ([id number]) Assessment & Plan Assessment & Plan (1) Hiatal hernia with gastroesophageal reflux: Comment: CT 12/2024 Barium swallow Code(s): K44.9 - Diaphragmatic hernia without obstruction or gangrene; K21.9 - Gastro-esophageal reflux disease without esophagitis Category: Medical (2) Left hip pain: Code(s): M25.552 - Pain in left hip Category: Medical (3) Low back pain: Code(s): M54.50 - Low back pain, unspecified Category: Medical Qualifiers: Chronicity: chronic Back pain laterality: left Sciatica presence: without sciatica Qualified Code(s): M54.50 - Low back pain, unspecified; G89.29 - Other chronic pain (4) Rib pain on left side: Code(s): R07.81 - Pleurodynia Category: Medical Plan . Orders: Orders PT Evaluation and Treatment Today M25.552 - Pain in left hip, M54.50 - Low back pain, unspecified, R07.81 - Pleurodynia Medications: New pantoprazole 20 mg PO DAILY 90 tabs 0RF Discontinued omeprazole Discontinued Reason: Doctor's Order 20 mg PO DAILY 30 caps 2RF
[2025-01-16 08:39] VITALS: BP 112/70; PULSE 69; RESP 12; TEMP 36.4; O2SAT 97; BMI 27.9
--- OUTSIDE RECORDS SUMMARY | 2025-01-16 08:41 | XMS_ITS | Encounter Summary ---
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 Name Role Phone Unavailable Primary Care Provider Unavailabl e Encounter Details Date Type Department Care Team ([facility] st Contact Info) Description 08/21/2024 Lab Requisition [facility] - Main Lab [address] [place] [id number] Renetta Beltran PA [address] [place] [address] Calculus of kidney Social History Tobacco Use [...] LAB CHEMISTRY METHOD 08/21/2024 2:49 PM EST [facility] Blood Venous blood specimen / Unknown 08/21/2024 10:11 AM EST 08/21/2024 1:32 PM EST us Renetta ZHANG LAB BLOOD ORDERABLES Final Re sult [facility] [address] [place] [address], [place] [phone] * Parathyroid hormone intact (08/21/2024 10:11 AM EST) PTH 73.5 18.5 - 88.0 pcg/mL LAB CHEMISTRY METHOD 08/21/2024 2:24 PM EST [facility] Blood Venous blood specimen / Unknown 08/21/2024 10:11 AM EST 08/21/2024 1:32 PM EST Renetta ZHANG LAB BLOOD ORDERABLES Final Re sult [facility] [address] [place] [address], [place] [phone] documented in this encounter Visit Diagnoses Diagnosis Calculus of kidney documented in this encounter
== END 2025-01-16 09:22 | disposition home or self-care (01) ==
LOC: HO.HMCFM 08:28
PROVIDERS: PCP Nurse Practitioner Family; Visit Provider Nurse Practitioner Family
DX: K44.9 Diaphragmatic hernia without obstruction or gangrene (principal); K21.9 Gastro-esophageal reflux disease without esophagitis; M25.552 Pain in left hip; M54.50 Low back pain, unspecified; G89.29 Other chronic pain; R07.81 Pleurodynia

== ENCOUNTER → 2025-01-16 08:27 | Outpatient (BNVA) | payer BC, SELFPAY | PROVIDERS: PCP Nurse Practitioner Family; Visit Provider Nurse Practitioner Family | DX: D68.51 Activated protein C resistance (principal); E78.5 Hyperlipidemia, unspecified; K57.90 Diverticulosis of intestine, part unspecified, without perforation or abscess without bleeding; E55.9 Vitamin D deficiency, unspecified; F41.1 Generalized anxiety disorder; N40.0 Benign prostatic hyperplasia without lower urinary tract symptoms; I25.10 Atherosclerotic heart disease of native coronary artery without angina pectoris; K44.9 Diaphragmatic hernia without obstruction or gangrene; K21.9 Gastro-esophageal reflux disease without esophagitis; M25.552 Pain in left hip; M54.50 Low back pain, unspecified; G89.29 Other chronic pain; R07.81 Pleurodynia | CPT/HCPCS: 96127 ==

== ENCOUNTER 2025-04-02 08:28 | Outpatient (AMB) | payer BC, SELFPAY ==
--- NOTE | 2025-04-02 08:30 | A.OFFPC_ITS ---
Vital Signs 04/02/25 08:33 Height 6 ft Weight 207 lb 2 oz BMI 28.1 BP 132/72 Blood Pressure Location Lt brachial Position Sitting Respiration 12 Pulse 60 Pulse Source Pulse Oximeter Temp 97.5 F Temp Source Oral Pulse Oximetry (%) 98 Oxygen Delivery Method Room Air Intake Visit Reasons: Mar 30 min routine fu Intake Note: Routine follow up Dirt Contractor Required: No Allergies atorvastatin Adverse Reaction (Mild, Verified 04/02/25 08:31) Muscle Pain Medication List - Last Reconciled 04/02/25 by KIT Ann- pantoprazole 20 mg PO DAILY Tobacco use date assessed: 04/02/25 Dental Screening Dental Screen Date: 04/02/25 Did you have a dental visit in the last 12 months?: Yes Did you have a dental problem in the last 6 months where you did not have access to dental care?: No Was dental information given to patient?: Patient has dentist HPI HPI Comments History of Present Illness Details 54 y/o M with nephrolithiasis, dyslipid emia, factor 5 Leiden mutation, chronically elevated at muscle enzymes, Diverticulosis, VIt d Def, DEREJE, BPH with LUTs, lymes disease, CAD (mild on abd aorta note 05/03/[address]), hiatal hernia, hepatic steatosis (ct abd 09/21/20), L renal cortical cyst (ct abd 01/18/23), multilevel DJD L4-S1 (ct abd 05/03/24), 2 liver cysts right lobe (ct abd 06/16/24) s/p lithotripsy, cysto with uretoscopy Left. Fhx: parents alive, Dad with DM. Mom breast ca Health Maintenance Colon 05/13/22 Diverticulosis, hyperplastic colon polyp, internal hemorrhoids, repeat 5 years Tdap 2016 [facility] exam 03/2025, wears glasses. Ry Roberts - The patient is a 54-year-old male pres enting for a comprehensive physical examination. - Dyslipidemia controlled with diet. - Vitamin D supplement previously on hol d. - Manages anxiety disorder through lifes tyle. - Adheres to lifestyle modifications for hepatic steatosis. - hiatal hernia with GERD [place] a little better issues with PPI coverage w/ insurance OMeprazole zero heartburn Started pantoprazole 3 weeks ago - no heartburn. Cont on [employer] wt stable Did not go to PT did not have time d/t work schedule He cont to have chronic pain, really unchanged Social History - Employed and states his work involves significant responsibility; recently took over duties due to a colleague's medical leave. - Engages in some physical activities an d utilizes [employer] for weight management, indicating a desire to lose weight. - Actively involved in family life with spouse, son, and daughter reported in good health. - Alcohol use rarely, denies smoking or substance abuse. - Nutrition involves conscious eating de cisions, but notes intention to reduce calorie intake to lose weight. - Active socially, being involved in coa isabel and other responsibilities. Review of Systems - Gastrointestinal: Reports history of G ERD; heartburn managed with pantoprazole. Denies active abdominal pain or alteration in bowel habits. - Musculoskeletal: Reports intermittent muscle soreness and tightness. No current joint pain or swelling. - Psychiatric: Manages anxiety with life style modifications. - General: No significant weight fluctua tions recently; discusses maintaining current weight Physical Exam General: Well developed, well nourished, in no acute distress. Appears stated age. Head: Normocephalic, atraumatic. Eyes: Pupils are equal, round and reactive to light and accommodation. Conjunctivae are clear. Vision grossly normal. Ears: TMs clear AU, EACS WNL. Noted presence of wax, will be cleaned. Nose: Patent, without discharge. Neck: Supple, no adenopathy or thyromegaly. Breast: Edu on SBE Lungs: Clear to auscultation bilaterally. No rales, rhonchi or wheeze noted. Good air flow in all altamirano. Heart: Regular rate and rhythm. No murmurs, click, rubs or gallops are noted. Abdomen: Bowel sounds present in all quadrants. The abdomen is soft, nontender, with no masses or organomegaly noted. No hernias are noted. : Deferred. Reviewed MIRELA & recommendations Pulses: Peripheral pulses are equal and palpable bilaterally. Extremities: No clubbing, cyanosis nor edema is noted. Noted muscle fasciculations in calves, longstanding and non-concerning. Neurologic: Gait and station normal. Cranial Nerves 2-12 intact. Motor strength grossly symmetrical and intact. No sensory loss. Balance normal. Skin: No rashes, ulcers, or lesions noted. Turgor is good. Skin color is good. Hair and nails are without abnormalities. Psych: Normal eye contact, affect and mood appropriate, and normal interactions. Patient is alert and appropriate to context. Results Labs: Chronic elevation of creatine kinase ranging from 399 to 484. - Imaging: CT scan identified two liver cysts described as small and presumably benign. Labs 06/16/24 normal cbc, BUN 19, Cr 1.33, egfr 47, radom glucose 123, AST 39, ALT 41 Labs 05/09/24 TC 269, LDL 185, HDL 66, 08/29/24 liver elastography There is a cys t in the right lobe measuring 0.9 x 1.3 x 0.7 cm. Normal elastopgraphy 08/2024 labs WNL CK normal H Pylori stool negative 04/02/2025 pending Discussion Notes During the visit, I discussed the patient's condition, management strategies, and ongoing treatments. We reviewed his GERD management, emphasizing the effectiveness of pantoprazole in alleviating symptoms. I discussed the importance of adherence to dietary adjustments to manage dyslipidemia and reinforced the significance of continuing lifestyle interventions for vitamin D deficiency, anxiety, and hepatic steatosis. The patient inquired about long-term GERD management, and we plan to assess ongoing need for pantoprazole at a later date. The possibility of uagq-tep-ermzcvo solutions was also discussed. The importance of maintaining regular physical activity and weight management was highlighted, noting potential benefits for overall well-being, including reduction in musculoskeletal discomfort. We discussed the potential influence of hydration on CPK levels. I recommended pursuing physical therapy to address persistent musculoskeletal symptoms, underscoring that PT could provide tailored interventions for his needs. I arranged for appropriate laboratory assessments, including potential rheumatologic evaluation through CAROLEE and HLA B27 testing, as well as routine blood work. Patient was given time to ask questions. All questions were answered to their satisfaction. Assessment and Plan 1. Hiatal Hernia and GERD - Continue pantoprazole. - Focus on dietary and lifestyle modific ation. 2. Dyslipidemia - Maintain dietary changes. - Monitor lipid levels. 3. Vitamin D Deficiency - Resume supplement if required. 4. Anxiety Disorder - Maintain lifestyle interventions. 5. Hepatic Steatosis - Stress appropriate diet and weight los s. 6. Musculoskeletal Concerns - Engage in physical therapy. - Advise continued hydration. Check additional labs. My office will arrange fu to review once results avail able. - Cont hydration, stretching. Patient Instructions - Continue taking your medication, panto prazole, as prescribed. - Stick to dietary changes to help manag e your cholesterol. - Keep using lifestyle changes to handle your anxiety. - Begin physical therapy to help with mu scle soreness. - Stay well hydrated and keep moving as much as you're able. - RTO 6 mo for routine fu sooner as need ed. Consent Patient was informed and verbally consented to the use of an ambient scribe for clinic note documentation during this visit. An additional 30 minutes was spent addressing the problem(s) noted at todays visit. This includes time spent before the visit reviewing the chart, time spent during the visit, and time spent after the visit on documentation reviewing laboratory results, diagnostic imaging, medications, performing a medically necessary evaluation, counseling on diagnoses, care coordination, ordering appropriate tests, ordering appropriate medications, review of tests performed by other providers, reporting test results with the patient, communication with other healthcare providers. [facility] Medical History (Updated 04/02/25 @ 10:11 by Mary Mcknight, [facility]) Annual visit for general adult medical examination with abnormal findings (~04/02/25) Dyslipidemia Elevated CK Factor 5 Leiden mutation, heterozygous Generalized anxiety disorder History of nephrolithiasis History of vitamin D deficiency Left lower quadrant abdominal pain Lyme disease Vitamin D deficiency Surgical History (Updated 12/05/24 @ 08:42 by Nida Villavicencio) Hx of colonoscopy (~05/13/22) Family History Father Diabetes mellitus Mother Breast cancer Paroxysmal atrial fibrillation HTN (hypertension) Sister No problems noted. Sister No problems noted. Son Kidney stones Daughter No problems noted. Daughter No problems noted. 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 1. Little interest or pleasure in doing things: not at all 2. Feeling down, depressed, or hopeless: not at all 3. Trouble falling or staying asleep, or sleeping too much: not at all 4. Feeling tired or having little energy: not at all 5. Poor appetite or overeating: not at all 6. Feeling bad about yourself - or that you are a failure or have let yourself or your family down: not at all 7. Trouble concentrating on things, such as reading the newspaper or watching television: not at all 8. Moving or speaking so slowly that other people could have noticed. Or the opposite - being so fidgety or restless that you have been moving around a lot more than usual: not at all 9. Thoughts that you would be better off or of hurting yourself in some way: not at all Total score: 0 Depression Screening Interpretation: Negative Depression Screening Done: Yes 12000 - PHQ-9 Billing: Yes Source: Developed by Drs. Foster Coley, Leeanne Flores, Mika Addison and colleagues, with an educational jessee from [employer]. Thrive Questionnaire Date Thrive assessed: 04/02/25 I am a: Patient What is your living situation today?: I have a steady place to live Within the past 12 months, did the food you bought not last and you didn't have the money to get more?: Never true Within the past 12 months, did you worry whether your food would run out before you got money to buy more?: Never true Do you have trouble paying for medicines?: No Do you have trouble getting transportation to medical appointments?: No Do you have trouble paying your heating and electricity bill?: No Do you have trouble taking care of your child, family member or friend?: No Do you have trouble with day-to-day activities such as bathing, preparing meals, shopping, managing finances, etc.?: No Are you currently unemployed and looking for a job?: No Are you interested in more education?: No Please select the resources that you would like help with: None Currently or been in a relationship where the following occur: No concerns repo rted THRIVE Score: 0 DEREJE-7 AMB Questionnaire DEREJE-7 Date DEREJE - 7 assessed: 04/02/25 Feeling nervous, anxious, or on edge: 0 = Not at all Not being able to stop or control worryin = Not at all Worrying too much about different things: 0 = Not at all Trouble relaxin = Not at all Being so restless that it is hard to sit still: 0 = Not at all Becoming easily annoyed or irritable: 0 = Not at all Feeling afraid as if something awful might happen: 0 = Not at all Total DEREJE-7 score (0-4 normal; 5-9 mild; 10-14 moderate; 15-21 severe): 0 Source: Developed by Drs. Foster Coley, Leeanne Flores, Mika Addison and colleagues, with an educational jessee from [employer]. DEREJE-7 Assessment Billing DEREJE-7 Assessment Tool: DEREJE-7 Assessment 86823 Physical exam (Primary Care) Vital Signs: Last Vital Signs Temp 97.5 F 04/02/25 08:33 Pulse 60 04/02/25 08:33 Resp 12 04/02/25 08:33 BP 132/72 04/02/25 08:33 Pulse Ox 98 04/02/25 08:33 Oxygen Delivery Method Room Air 04/02/25 08:33 BMI result Body Mass Index 28.1 Tobacco/Smoking Status: Tobacco use Status Tobacco use date assessed 04/02/25 04/02/25 08:34 Patient Tobacco Use Status Never used Tobacco 04/02/25 08:34 e-Cigarette/Vaping Use Never Used 04/02/25 08:34 PHQ-9: PHQ-9 Score PHQ-9: Total score 0 04/02/25 09:54 Depression Screening Interpretation: Negative Thrive Assessment: Date of Thrive Assessment Date Thrive assessed 04/02/25 04/02/25 08:34 Currently or been in a relationship where the following occur: No concerns reported Office Procedures Cerumen Removal From which ear canal was the cerumen removed: bilateral Removal: irrigation Notes: patient tolerated procedure well, no complications and ear canal clear [id number] Irrigation/Lavage Coding Level of Care Code Est Pt Level 4 (13360) Est Pt Prev Care 40-64y(88804) Diagnoses Annual visit for general adult medical examination with abnormal findings Z00.01 Benign prostatic hyperplasia, unspecified whether lower urinary tract symptoms present N40.0 Lower urinary tract symptom presence: unspecified whether lower urinary tract symptoms present Impacted cerumen, bilateral H61.23 Generalized anxiety disorder F41.1 Coronary artery disease involving [place] coronary artery of [place] heart without angina pectoris I25.10 Coronary Disease-Associated Artery/Lesion type: [place] artery [place] vs. transplanted heart: [place] heart Associated angina: without angina Dyslipidemia E78.5 Factor 5 Leiden mutation, heterozygous D68.51 Vitamin D deficiency E55.9 Hiatal hernia with gastroesophageal reflux K44.9; K21.9 Nephrolithiasis N20.0 Chronic left-sided low back pain without sciatica M54.50; G89.29 Chronicity: chronic Back pain laterality: left Sciatica presence: without sciatica Left hip pain M25.552 Rib pain on left side R07.81 CPT Codes Office Procedure - CPT: 04698-Saa Irrigation/Lavage ([id number]) Additional Codes DEREJE-7 Assessment Billing - DEREJE-7 Assessment Tool: DEREJE-7 Assessment 22124 ([id number]) PHQ-9 - 82544 - PHQ-9 Billing: Yes ([id number]) Assessment & Plan Assessment & Plan (1) Annual visit for general adult medical examination with abnormal findings: Onset Date: ~04/02/25 Code(s): Z00.01 - Encounter for general adult medical examination with abnormal findings Category: Medical (2) BPH (benign prostatic hyperplasia): Code(s): N40.0 - Benign prostatic hyperplasia without lower urinary tract symptoms Category: Medical Qualifiers: Lower urinary tract symptom presence: unspecified whether lower urinary tract symptoms present Qualified Code(s): N40.0 - Benign prostatic hyperplasia without lower urinary tract symptoms (3) Impacted cerumen, bilateral: Code(s): H61.23 - Impacted cerumen, bilateral (4) Generalized anxiety disorder: Code(s): F41.1 - Generalized anxiety disorder Category: Medical (5) CAD (coronary artery disease): Code(s): I25.10 - Atherosclerotic heart disease of [place] coronary artery without angina pectoris Category: Medical Qualifiers: Coronary Disease-Associated Artery/Lesion type: [place] artery [place] vs. transplanted heart: [place] heart Associated angina: without angina Qualified Code(s): I25.10 - Atherosclerotic heart disease of [place] coronary artery without angina pectoris (6) Dyslipidemia: Code(s): E78.5 - Hyperlipidemia, unspecified Category: Medical (7) Factor 5 Leiden mutation, heterozygous: Code(s): D68.51 - Activated protein C resistance Category: Medical (8) Vitamin D deficiency: Code(s): E55.9 - Vitamin D deficiency, unspecified Category: Medical (9) Hiatal hernia with gastroesophageal reflux: Comment: CT 12/2024 Barium swallow Code(s): K44.9 - Diaphragmatic hernia without obstruction or gangrene; K21.9 - Gastro- esophageal reflux disease without esophagitis Category: Medical (10) Nephrolithiasis: Code(s): N20.0 - Calculus of kidney Category: Medical (11) Low back pain: Code(s): M54.50 - Low back pain, unspecified Category: Medical Qualifiers: Chronicity: chronic Back pain laterality: left Sciatica presence: without sciatica Qualified Code(s): M54.50 - Low back pain, unspecified; G89.29 - Other chronic pain (12) Left hip pain: Code(s): M25.552 - Pain in left hip Category: Medical (13) Rib pain on left side: Code(s): R07.81 - Pleurodynia Category: Medical Plan . Orders: Orders HLA B27 Today Z. - Encounter for general adult medical examination with abnormal findings CAROLEE Reflex Titer and Pattern Today . - Encounter for general adult medical examination with abnormal findings Rheumatoid Factor Today . - Encounter for general adult medical examination with abnormal findings Anti DNA DS Antibody Today . - Encounter for general adult medical exa mination with abnormal findings Complement C3 Today Z. - Encounter for general adult medical examination with abnormal findings Prostate Specific Antigen Scr Today N40.0 - Benign prostatic hyperplasia without lower urinary tract symptoms Smooth Muscle Antibody Today . - Encounter for general adult medical exa mination with abnormal findings Sm Sm/THERAPEUTIC DIETITIAN Antibodies Today Z. - Encounter for general adult medical examination with abnormal findings DNA Double Stranded-Crithidia Today Z. - Encounter for general adult medical examination with abnormal findings Lupus Anticoagulant Panel Today . - Encounter for general adult medical examination with abnormal findings Complement C4 Today .01 - Encounter for general adult medical examination with abnormal findings Sjogren's Antibodies Today Z00.01 - Encounter for general adult medical examination with abnormal findings Patient Instructions: Health screenings for men You should visit your health care provider regularly, even if you feel healthy. The purpose of these visits is to: Screen for medical issues Assess your risk for future medical problems Encourage a healthy lifestyle Update vaccinations and other preventive care services Help you get to know your provider in case of an illness Information Even if you feel fine, you should still see your provider for regular checkups. These visits can help you avoid problems in the future. For example, the only way to find out if you have high blood pressure is to have it checked regularly. High blood sugar and high cholesterol level also may not have any symptoms in the early stages. Simple blood tests can check for these conditions. There are specific times when you should see your provider or receive specific health screenings. The [place] Preventive Services Task Force publishes a list of recommended screenings. Below are screening guidelines for men ages 40 to 64. BLOOD PRESSURE SCREENING Have your blood pressure checked at least once every year. Watch for blood pressure screenings in your area. Ask your provider if you can stop in to have your blood pressure checked. Ask your provider if you need your blood pressure checked more often if: You have diabetes, heart disease, kidney problems, or are overweight or have certain other health conditions You have a first-degree relative with high blood pressure You are Black Your blood pressure top number is from 120 to 129 mm Hg, or the bottom number is from 70 to 79 mm Hg If the top number is 130 mm Hg or greater or the bottom number is 80 mm Hg or greater, this is considered stage 1 hypertension. Schedule an appointment with your provider to learn how you can lower your blood pressure. Effects of age on blood pressure CHOLESTEROL SCREENING Cholesterol screening should begin at age 35 for men with no known risk factors for coronary heart disease. Repeat cholesterol screening should take place: Every 5 years for men with normal cholesterol levels More often if changes occur in lifestyle (including weight gain and diet) More often if you have diabetes, heart disease, kidney problems, or certain other conditions COLORECTAL CANCER SCREENING If you are under age 45, talk to your provider about getting screened. You may need to be screened if you have a strong family history of colon cancer or polyps. Screening may also be considered if you have risk factors such as a history of inflammatory bowel disease or polyps. If you are age 45 to 75, you should be screened for colorectal cancer. There are several screening tests available: A stool-based fecal occult blood (gFOBT) or fecal immunochemical test (FIT) every year A stool sDNA test every 1 to 3 years Flexible sigmoidoscopy every 5 years or every 10 years with stool testing FIT done every year CT colonography (virtual colonoscopy) every 5 years Colonoscopy every 10 years You may need a colonoscopy more often if you have risk factors for colorectal cancer, such as: Ulcerative colitis A personal or family history of colorectal cancer A history of growths in your colon called adenomatous polyps DENTAL EXAM Go to the dentist once or twice every year for an exam and cleaning. Your dentist will evaluate if you have a need for more frequent visits. DIABETES SCREENING All adults who do not have risk factors for diabetes should be screened starting at age 35 and repeated every 3 years. If you have other risk factors for diabetes, such as a first degree relative with diabetes, overweight or obesity, high blood pressure, prediabetes, or a history of heart disease, you may be tested more often. If you are overweight and have other risk factors, such as high blood pressure and are planning to become , screening is recommended. EYE EXAM Have an eye exam every 2 to 4 years ages 40 to 54 and every 1 to 3 years ages 55 to 64. Your provider may recommend more frequent eye exams if you have vision problems or glaucoma risk. Have an eye exam that includes an examination of your retina (back of your eye) at least every year if you have diabetes. IMMUNIZATIONS Commonly needed vaccines include: Flu shot: get one every year COVID-19 vaccine: ask your provider what is best for you Tetanus-diphtheria and acellular pertussis (Tdap) vaccine: have as one of your tetanus-diphtheria vaccines if you did not receive it as an adolescent Tetanus-diphtheria: have a booster (or Tdap) every 10 years Varicella vaccine: receive 2 doses if you never had chickenpox or the varicella vaccine and were born in 1979 or after Hepatitis B vaccine: receive 2, 3, or 4 doses, depending on your exact circumstances, if you did not receive these as a child or adolescent, until age 59 Shingles (herpes zoster) vaccine: at or after age 50 Ask your provider if you should receive other immunizations, especially if you have certain medical conditions, such as diabetes or are at increased risk for some diseases such as pneumonia. INFECTIOUS DISEASE SCREENING Screening for hepatitis C: all adults ages 18 to 79 should get a one-time test for hepatitis C. Screening for human immunodeficiency virus (HIV): all people ages 15 to 65 should get a one-time test for HIV. Depending on your lifestyle and medical history, you may need to be screened for infections such as syphilis, chlamydia, and other infections. LUNG CANCER SCREENING You should have an annual screening for lung cancer with low-dose computed tomography (LDCT) if: You are age 50 to 80 years AND You have a 20 pack-year smoking history AND You currently smoke or have quit within the past 15 years OSTEOPOROSIS SCREENING If you are age 50 to 64 and have risk factors for osteoporosis, you should discuss screening with your provider. Risk factors can include long-term steroid use, low body weight, smoking, heavy alcohol use, having a fracture after age 50, or a family history of hip fracture or osteoporosis. Osteoporosis PHYSICAL EXAM All adults should visit their provider from time to time, even if they are healthy. The purpose of these visits is to: Screen for diseases Assess risk of future medical problems Encourage a healthy lifestyle Update vaccinations and other preventive care services Maintain a relationship with a provider in case of an illness Your height, weight, and body mass index (BMI) should be checked at every exam. During your exam, your provider may ask you about: Depression and anxiety Diet and exercise Alcohol and tobacco use Safety, such as use of seat belts and smoke detectors Your medicines and risk for interactions PROSTATE CANCER SCREENING If you're 55 through 69 years old, before having the test, talk to your provider about the pros and cons of having a PSA test. Ask about: Whether screening decreases your chance of dying from prostate cancer. Whether there is any harm from prostate cancer screening, such as side effects from testing or overtreatment of cancer when discovered. Whether you have a higher risk of prostate cancer than others. If you are age 55 or younger, screening is not generally recommended. You should talk with your provider about if you have a higher risk for prostate cancer. Risk factors include: Having a family history of prostate cancer (especially a brother or father) Being If you choose to be tested, the PSA blood test is repeated over time (yearly or less often), though the best frequency is not known. Prostate examinations are no longer routinely done on men with no symptoms. Prostate cancer SKIN EXAM Your provider may check your skin for signs of skin cancer, especially if you're at high risk. People at high risk include those who have had skin cancer before, have close relatives with skin cancer, or have a weakened immune system. TESTICULAR EXAM The [place] Preventive Services Task Force (USPSTF) now recommends against performing testicular self-exams. Doing testicular self-exams has been shown to have little to no benefit.
[2025-04-02 08:33] VITALS: BP 132/72; PULSE 60; RESP 12; TEMP 36.4; O2SAT 98; BMI 28.1
--- OUTSIDE RECORDS SUMMARY | 2025-04-02 09:31 | XMS_ITS | Encounter Summary ---
Author Organization [employer] Address [address] [place] [address] Care Team Providers Care Equine Manager Name Role Phone Unavailable Primary Care Provider Unavailabl e Encounter Details Date Type Department Care Team ([facility] st Contact Info) Description 08/21/2024 Lab Requisition [facility] - Main Lab [address] [place] [phone] Renetta Beltran PA [address] [place] [address] Calculus of kidney Social History Tobacco Use [...] LAB CHEMISTRY METHOD 08/21/2024 2:49 PM EST [facility] ([facility]) [facility] LAB Blood Venous blood specimen / Unknown 08/21/2024 10:11 AM EST 08/21/2024 1:32 PM EST us Renetta ZHANG LAB BLOOD ORDERABLES Final Re sult [facility] LAB [address] [place] [address], [place] [phone] * Parathyroid hormone intact (08/21/2024 10:11 AM EST) PTH 73.5 18.5 - 88.0 pcg/mL LAB CHEMISTRY METHOD 08/21/2024 2:24 PM EST [facility] LAB Blood Venous blood specimen / Unknown 08/21/2024 10:11 AM EST 08/21/2024 1:32 PM EST Renetta ZHANG LAB BLOOD ORDERABLES Final Re sult [facility] LAB [address] [place] [address], [place] [phone] documented in this encounter Visit Diagnoses Diagnosis Calculus of kidney documented in this encounter
--- OUTSIDE RECORDS SUMMARY | 2025-04-02 09:31 | XMS_ITS | Clinical Summary ---
Author Organization 299 [facility] Address [address] [place] [address] Phone Care Team Providers Care Computer Applications Engineer Name Role Phone Unavailable Primary Care Provider Unavailabl e Social History Tobacco Use Types Packs/Day Years [...] Vaccines (1 of 2) 12/21/2021 COVID-19 Vaccine (1 - 2023-2 5 season) 2024 Depression Screening 07/25/2024 Cholesterol Screening (Lipid Panel) 08/21/2024 Colorectal Cancer Screening: Colonoscopy 08/21/2024 HIV Screening 08/21/2024 Hepatitis C Screening 08/21/2024 Social Influencers of Health Screening 08/21/2024 Influenza Vaccine (#1) 2025 HIB Vaccines Aged Out No longer eligi [...] age to complete this topic Meningococcal B Vaccine Aged Out No l onger eligible based on patient's age to complete this topic RSV Immunization Patients Un francisco 20 months Aged Out No longer eligible b ased on patient's age to complete this topic Varicella Vaccines Aged Out No longer eligible based on patient's age to complete this topic Insurance [facility]
== END 2025-04-02 09:11 | disposition home or self-care (01) ==
LOC: HO.HMCFM 08:29
PROVIDERS: PCP Nurse Practitioner Family; Visit Provider Nurse Practitioner Family
DX: Z00.01 Encounter for general adult medical examination with abnormal findings (principal); N40.0 Benign prostatic hyperplasia without lower urinary tract symptoms; H61.23 Impacted cerumen, bilateral; F41.1 Generalized anxiety disorder; I25.10 Atherosclerotic heart disease of native coronary artery without angina pectoris; E78.5 Hyperlipidemia, unspecified; D68.51 Activated protein C resistance; E55.9 Vitamin D deficiency, unspecified; K44.9 Diaphragmatic hernia without obstruction or gangrene; K21.9 Gastro-esophageal reflux disease without esophagitis; N20.0 Calculus of kidney; M54.50 Low back pain, unspecified; G89.29 Other chronic pain; M25.552 Pain in left hip; R07.81 Pleurodynia

== ENCOUNTER 2025-04-02 08:28 | Outpatient (REF) | payer BC, SELFPAY | END 2025-04-02 08:29 | disposition home or self-care (01) | LOC: HO.WFDLDS 08:28 | PROVIDERS: PCP Nurse Practitioner Family; Visit Provider Nurse Practitioner Family | DX: Z13.89 Encounter for screening for other disorder (principal) ==

== ENCOUNTER 2025-04-25 07:37 | Outpatient (REF) | payer BC, SELFPAY ==
--- OUTSIDE RECORDS SUMMARY | 2025-04-25 07:41 | XMS_ITS | Clinical Summary ---
Author Organization 299 [facility] Address [address] [place] [address] Phone Care Team Providers Care Grass Cutter Name Role Phone Unavailable Primary Care Provider Unavailabl e Social History Tobacco Use Types Packs/Day Years Used Date Smoking Tobacco: Never Assessed Sex and Gender Information Value Date Recorded Sex Assigned at Not on file Legal Sex Male 5:10 PM EST Gender Identity Not on file Sexual Orientation Not on file Plan of Treatment Health Maintenance Due Date Last Done Comments Colorectal Cancer Screening: Colonoscopy 1971 DTaP,Tdap,and Td Vaccines (1 - Tdap) 12/21/1990 Hepatitis B Vaccines (1 of 3 - 19+ 3-dose series) 12/21/1990 Pneumococcal Vaccine: 50+ Ye ars (1 of 1 - PCV) 12/21/2021 Zoster Vaccines (1 of 2) 12/21/2021 Depression Screening 07/25/2024 Cholesterol Screening (Lipid Panel) 08/21/2024 HIV Screening 08/21/2024 Hepatitis C Screening 08/21/2024 Social Influencers of Health Screening 08/21/2024 COVID-19 Vaccine (1 - 2023-2 5 season) 2025 Influenza Vaccine (#1) 2025 RSV Immunization Adult Patie nts (1 - 1-dose 75+ series) 12/21/2046 HIB Vaccines Aged Out No longer eligi [...] patient's age to complete this topic Insurance [facility]
--- OUTSIDE RECORDS SUMMARY | 2025-04-25 07:41 | XMS_ITS | Encounter Summary ---
Author Organization [employer] Address [address] [place] [address] Care Team Providers Care Business Line Controller Name Role Phone Unavailable Primary Care Provider Unavailabl e Encounter Details Date Type Department Care Team ([facility] st Contact Info) Description 08/21/2024 Lab Requisition [facility] - Main Lab [address] [place] [phone] Renetta Beltran PA [address] [place] [address] Calculus of kidney Social History Tobacco Use [...] LAB CHEMISTRY METHOD 08/21/2024 2:49 PM EST [facility]) [facility] LAB Blood Venous blood specimen / Unknown 08/21/2024 10:11 AM EST 08/21/2024 1:32 PM EST us Renetta ZHANG LAB BLOOD ORDERABLES Final Re sult [facility] [address] [place] [address], [place] [phone] * Parathyroid hormone intact (08/21/2024 10:11 AM EST) PTH 73.5 18.5 - 88.0 pcg/mL LAB CHEMISTRY METHOD 08/21/2024 2:24 PM EST [facility] LAB Blood Venous blood specimen / Unknown 08/21/2024 10:11 AM EST 08/21/2024 1:32 PM EST Renetta ZHANG LAB BLOOD ORDERABLES Final Re sult [facility] [address] [place] [address], [place] [phone] documented in this encounter Visit Diagnoses Diagnosis Calculus of kidney documented in this encounter
[2025-04-25 08:54] LABS: Cholesterol 275 mg/dL (<200); HDL Cholesterol 62 mg/dL (>40); Triglycerides 123 mg/dL (<150)
[2025-04-26 18:08] LABS: Antibody to SS-A Antigen <1.0 NEG AI (<1.0 NEG); Antibody to SS-B Antigen <1.0 NEG AI (<1.0 NEG); SM/Ribonucleoprotein Ab <1.0 NEG AI (<1.0 NEG); Smith Protein <1.0 NEG AI (<1.0 NEG)
[2025-04-29 12:04] LABS: Anti Nuclear Antibody Screen NEGATIVE (NEGATIVE)
[2025-04-30 17:24] LABS: HLA B27 Negative (Negative)
[2025-05-01 08:48] LABS: DNAds, Crithidia Antibody Positive (Negative)
[2025-05-01 09:14] LABS: DNAds, Crithidia Antibody 1:10 titer (<1:10)
== END 2025-04-25 07:38 | disposition home or self-care (01) ==
LOC: HO.LAB 07:37
PROVIDERS: PCP Nurse Practitioner Family; Visit Provider Nurse Practitioner Family
DX: Z00.01 Encounter for general adult medical examination with abnormal findings (principal); N40.0 Benign prostatic hyperplasia without lower urinary tract symptoms; I25.10 Atherosclerotic heart disease of native coronary artery without angina pectoris; E55.9 Vitamin D deficiency, unspecified; Z12.5 Encounter for screening for malignant neoplasm of prostate
CPT/HCPCS: 36415; 80061; 82306; 84153; 85597; 85598; 85613; 85730; 86015; 86038; 86160; 86225; 86235; 86255; 86431; 86812

== ENCOUNTER 2025-05-10 14:17 | Outpatient (AMB) | payer BC, SELFPAY ==
--- NOTE | 2025-05-10 14:16 | MHC.PC.OV ---
Intake Visit Reasons: telehealth to review labs Intake Note: Telehealth to review labs. Hydraulic Punch Press Operator Required: No Allergies atorvastatin Adverse Reaction (Mild, Verified 05/10/25 14:16) Muscle Pain Medication List - Last Reconciled 05/10/25 by Mary Mcknight, [facility]- pantoprazole 20 mg PO DAILY Tobacco use date assessed: 05/10/25 Dental Screening Dental Screen Date: 04/02/25 HPI HPI Comments History of Present Illness Details 54 y/o M with nephrolithiasis, dyslipidemia, factor 5 Leiden mutation, chronically elevated at muscle enzymes, Diverticulosis, VIt d Def, DEREJE, BPH with LUTs, lymes disease, CAD (mild on abd aorta note 05/03/[address]), hiatal hernia, hepatic steatosis (ct abd 09/21/20), L renal cortical cyst (ct abd 01/18/23), multilevel DJD L4-S1 (ct abd 05/03/24), 2 liver cysts right lobe (ct abd 06/16/24) s/p lithotripsy, cysto with uretoscopy Left. Fhx: parents alive, Dad with DM. Mom breast ca Health Maintenance Colon 05/13/22 Diverticulosis, hyperplastic colon polyp, internal hemorrhoids, repeat 5 years Tdap 2015 [facility] Optho exam 03/2025, wears glasses. Ry Roberts Televideo visit to fu on labs done to eval myalgias/muscle fatigue + Anti DS DNA, Neg CAROLEE Vit d low. Tolerated 50mcg D3 last year w/o recurrent renal stone issues LDL high but HDL > 60 He has been feeling well. Has not had to log any sx cont on PPI Has not started PT yet but will Just had Renal CT/appt told of no stones! Physical Exam Limited physical exam was conducted Awake alert NAD Speaking in full sentences Engaging, appropriate Skin pink warm and dry Mood and affect appropriate Results See below for details Assessment and Plan DDx include lupus, however unusual to have negative CAROLEE. The plan will be to repeat the labs at a direct lab site, such as [facility], at his convenience and refer to [facility] Rheum. If the repeat labs are normal, i will cancel the Rheum referral. If + , the recommendation would be to see them for further eval. HX of elevated CK in the past. Clinical story could correlate w/lupus. Start Vitamin D3 25 mcg Cont life style mods for Cholesterol Schedule PT Cont PPI Send me info on which lab to send orders to once you verify insurance. I will f/u once results are back. Patient was given time to ask questions. All questions were answered to their satisfaction. Telehealth Attestation The patient has been explained that this is an interactive (audio/video) telehealth encounter and what that consists of. The patient understands and wishes to proceed. CO Everywhere platform was used. Total time spent caring for the patient today was 30 minutes. This includes time spent before the visit reviewing the chart, time spent during the visit, and time spent after the visit on documentation, reviewing laboratory results, diagnostic imaging, medications, performing a medically necessary evaluation, counseling on diagnoses, care coordination, ordering appropriate tests, ordering appropriate medications, review of tests performed by other providers, reporting test results with the patient, communication with other healthcare providers. [facility] Medical History (Updated 05/10/25 @ 14:48 by Mary Mcknight, [facility]) Annual visit for general adult medical examination with abnormal findings (~04/02/25) Dyslipidemia Elevated CK Factor 5 Leiden mutation, heterozygous Generalized anxiety disorder History of nephrolithiasis History of vitamin D deficiency Left lower quadrant abdominal pain Lyme disease Vitamin D deficiency Surgical History (Updated 12/05/24 @ 08:42 by Nida Villavicencio) Hx of colonoscopy (~05/13/22) Family History Father Diabetes mellitus Mother Breast cancer Paroxysmal atrial fibrillation HTN (hypertension) Sister No problems noted. Sister No problems noted. Son Kidney stones Daughter No problems noted. Daughter No problems noted. 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 Foster Coley, Leeanne Flores, Mika Addison and colleagues, with an educational jessee from [employer]. Physical exam (Primary Care) Tobacco/Smoking Status: Tobacco use Status Tobacco use date assessed 05/10/25 05/10/25 14:17 Patient Tobacco Use Status Never used Tobacco 05/10/25 14:17 e-Cigarette/Vaping Use Never Used 05/10/25 14:17 Thrive Assessment: Date of Thrive Assessment Date Thrive assessed 04/02/25 05/10/25 14:17 Telehealth Telehealth Telehealth Platform: CO Everywhere Location of provider rendering services: practice address Location of patient: address on file Patient Identification confirmed using: Name, : Yes Telehealth method: video Patient verbally consented to treatment: Yes Patient verbally consented to billing insurance company: Yes Patient informed of any privacy concerns related to visit: Yes Minutes spent on Phone/Video with Pt.: 20 Results Reviewed Results Reviewed: Laboratory 04/25/25 Result Units Range Interpretation Provider Comments Triglycerides Level 123 mg/dL (<150) Cholesterol Level 275 mg/dL (<200) High LDL Cholesterol, Calculated 189 mg/dL (<100) High HDL Cholesterol 62 mg/dL (>40) Prostate Specific Antigen Screen 0.84 ng/mL (<0.05-4.0) 25-Hydroxy Vitamin D Total 25.8 ng/mL (>30) Low Rheumatoid Factor < 13.0 IU/mL (<15.0) Laboratory Result Units Range Interpretation Provider Comments Anti-Nuclear Antibody Screen NEGATIVE (NEGATIVE) Anti-Nuclear Antibody Titer TNP Anti-Nuclear Antibody Titer 2 TNP Anti-Nuclear Antibody Titer 3 TNP Anti-Nuclear Antibody Pattern TNP Anti-Nuclear Antibody Pattern 2 TNP Anti-Nuclear Antibody Pattern 3 TNP Laboratory Result Units Range Interpretation Provider Comments SS-A/Ro Antibody <1.0 NEG AI (<1.0 NEG) SS-B/La Antibody <1.0 NEG AI (<1.0 NEG) Sm (Ybarra) Antibody <1.0 NEG AI (<1.0 NEG) SM/WORK FROM HOME Antibody <1.0 NEG AI (<1.0 NEG) Anti-Double Strand DNA Antibody <1 IU/mL Anti-ds DNA Titer (Crithidia) Pending Anti-Double Strand DNA (Crithidia) Pending Anti-Smooth Muscle Antibody Pending Complement C3 136 mg/dL (82-185) Complement C4 25 mg/dL (15-53) Laboratory Result Units Range Interpretation Provider Comments Lupus Anticoagulant PTT Screen 40 sec (<=40) Lupus Anticoagulant Thrombin Time TNP Dilute Nick Viper Venom Screen 35 sec (<=45) DRVVT Confirmation Interpretation TNP DRVVT Mixing Study TNP dRVVT Mix Interpretation TNP Hexagonal Phase Neutralization TNP Lupus Anticoagulant Interpretation see note SS-A/Ro Antibody <1.0 NEG AI (<1.0 NEG) SS-B/La Antibody <1.0 NEG AI (<1.0 NEG) Sm (Ybarra) Antibody <1.0 NEG AI (<1.0 NEG) SM/WORK FROM HOME Antibody <1.0 NEG AI (<1.0 NEG) Anti-Double Strand DNA Antibody <1 IU/mL Anti-ds DNA Titer (Crithidia) 1:10 titer (<1:10) High Anti-Double Strand DNA (Crithidia) Positive (Negative) Abnormal Anti-Smooth Muscle Antibody <20 U (<20) HLA-B27 Negative (Negative) Coding Level of Care Code Tele Est Pt Level 4 (77627) Complex EM visit Add On G2211 Diagnoses Encounter to discuss test results Z71.2 Positive double stranded DNA antibody test . Vitamin D deficiency E55.9 Dyslipidemia E78.5 Nephrolithiasis N20.0 Assessment & Plan Assessment & Plan (1) Encounter to discuss test results: Code(s): Z71.2 - Person consulting for explanation of examination or test findings (2) Positive double stranded DNA antibody test: Code(s): R76.89 - Other specified abnormal immunological findings in serum Category: Medical (3) Vitamin D deficiency: Code(s): E55.9 - Vitamin D deficiency, unspecified Category: Medical (4) Dyslipidemia: Code(s): E78.5 - Hyperlipidemia, unspecified Category: Medical (5) Nephrolithiasis: Code(s): N20.0 - Calculus of kidney Category: Medical Plan . Orders: Orders Anti DNA DS Antibody Today - Other specified abnormal immunological findings in serum DNA Double Stranded-Crithidia Today R76.89 - Other specified abnormal immunological findings in serum CAROLEE Reflex Titer and Pattern Today R76.89 - Other specified abnormal immunological findings in serum Referrals Rheumatology Referral R76.89 - Other specified abnormal immunological findings in serum Medications: New cholecalciferol (vitamin D3) 25 mcg PO DAILY 90 caps 0RF
--- OUTSIDE RECORDS SUMMARY | 2025-05-10 16:50 | XMS_ITS | Clinical Summary ---
Author Organization 299 [facility] Address [address] [place] [address] Phone Care Team Providers Care Process Area Supervisor Name Role Phone Unavailable Primary Care Provider [...] patient's age to complete this topic Insurance [facility]
--- OUTSIDE RECORDS SUMMARY | 2025-05-10 16:50 | XMS_ITS | Encounter Summary ---
Author Organization [employer] Address [address] [place] [address] Care Team Providers Care Electronic Scale Tester Name Role Phone Unavailable Primary Care Provider Unavailabl e Encounter Details Date Type Department Care Team ([facility] st Contact Info) Description 08/21/2024 Lab Requisition [facility] - Main Lab [address] [place] [phone] Renetta Beltran PA [address] [place] [address] Calculus of kidney Social History Tobacco Use [...] LAB CHEMISTRY METHOD 08/21/2024 2:49 PM EST [facility] Blood Venous blood specimen / Unknown 08/21/2024 10:11 AM EST 08/21/2024 1:32 PM EST us Renetta ZHANG LAB BLOOD ORDERABLES Final Re sult [facility] [address] [place] [address], [place] [phone] * Parathyroid hormone intact (08/21/2024 10:11 AM EST) PTH 73.5 18.5 - 88.0 pcg/mL LAB CHEMISTRY METHOD 08/21/2024 2:24 PM EST [facility] LAB Blood Venous blood specimen / Unknown 08/21/2024 10:11 AM EST 08/21/2024 1:32 PM EST Renetta ZHANG LAB BLOOD ORDERABLES Final Re sult [facility] [address] [place] [address], [place] [phone] documented in this encounter Visit Diagnoses Diagnosis Calculus of kidney documented in this encounter
== END 2025-05-10 17:01 | disposition home or self-care (01) ==
LOC: HO.HMCFM 14:18
PROVIDERS: PCP Nurse Practitioner Family; Visit Provider Nurse Practitioner Family
DX: E78.5 Hyperlipidemia, unspecified (principal); Z71.2 Person consulting for explanation of examination or test findings; R76.89 Other specified abnormal immunological findings in serum; E55.9 Vitamin D deficiency, unspecified; N20.0 Calculus of kidney